=== PATIENT | female | born 1950 | race Caucasian/White ===

== ENCOUNTER 2017-11-25 15:07 | Emergency (ER) | payer MEDICARE, OTHER ==
[~2017-11-25] VITALS: Ht 167.6 cm; Wt 73.9 kg
[~2017-11-25 15:07] MED LIST changes: -ANTIVERT25 MG PO
[2017-11-25 16:11] LABS: ABSOLUTE BASOPHILS 0.1 thou/uL (0.0-0.2); ABSOLUTE EOSINOPHILS 0.3 thou/uL (0.0-0.7); ABSOLUTE LYMPHOCYTES 2.7 thou/uL (0.8-5.3); ABSOLUTE MONOCYTES 0.5 thou/uL (0.0-1.2); ABSOLUTE NEUTROPHILS 4.7 thou/uL (1.6-8.1); BASOPHILS 1.1 %; EOSINOPHILS 3.4 %; HEMATOCRIT 44.3 % (37.0-47.0); HEMOGLOBIN 14.9 gm/dL (12.0-15.0); LYMPHOCYTES 32.5 %; MCH 30.5 pg (26.0-34.0); MCHC 33.7 g/dL (28.0-37.0); MCV 90.4 fL (80.0-100.0); MONOCYTES 6.4 %; MPV 7.4 fl. (7.2-11.1); NUCLEATED RBCS 0 /100WBC; PLATELET COUNT* 249 thou/uL (150-400); POLYS 56.6 %; RDW-CV 14.1 % (10.5-14.5); WBC 8.2 thou/uL (4.0-11.0)
[2017-11-25 16:35] LABS: ANION GAP 6 mmol/L (7-16); BUN 19 mg/dL (7-18); CALCIUM 8.8 mg/dL (8.5-10.1); CHLORIDE 105 mmol/L (98-107); CO2 31 mmol/L (21-32); CREATININE 1.1 mg/dL (0.6-1.3); GLUCOSE 102 mg/dL (70-99); POTASSIUM 3.3 mmol/L (3.5-5.1); SODIUM 142 mmol/L (136-145)
[2017-11-25 16:37] LABS: URINE BILIRUBIN NEGATIVE (Negative); URINE BLOOD NEGATIVE (Negative); URINE CLARITY CLEAR; URINE COLOR YELLOW; URINE GLUCOSE-RANDOM 3+ (Negative); URINE KETONES NEGATIVE (Negative); URINE LEUKOCYTES-REFLEX NEGATIVE (Negative); URINE NITRITE-REFLEX NEGATIVE (Negative); URINE PROTEIN NEGATIVE (Negative); URINE UROBILINOGEN 0.2 E.U./dl (0.2-1.0)
[2017-11-25 16:42] LABS: ALBUMIN 3.4 g/dL (3.4-5.0); ALKALINE PHOSPHATASE 56 U/L (46-116); SGOT 32 U/L (15-37); SGPT 46 U/L (30-65); TOTAL BILIRUBIN 0.5 mg/dL (<0.1-1.0); TOTAL PROTEIN 6.6 g/dL (6.4-8.2); TROPONIN-I LEVEL <0.06 ng/mL (<0.06)
[2017-11-25] MEDS ORDERED: ANTIVERT25 MG PO (17:31)
[2017-11-25 17:55] VITALS: BP 107/68
--- NOTE | 2017-11-26 12:43 | EKG ---
[place] [address] ELECTROCARDIOGRAM REPORT Name: UMBERTO HIGHTOWER Room: [facility]#: [id number] Admission: 11/25/17 Attend Phys: Discharge: 11/25/17 Date of : 46 Report #: [id number] THIS REPORT FOR: //name// [facility] ED Test Date: 2017-11-25 Test Time: 15:27:25 Pat Name: UMBERTO HIGHTOWER Department: Room: Gender: F Coordinator Volunteer Services: : 1950 Requested By: Missy Salomon Order Number: [id number] MD: Gavino Romero Measurements Intervals [place] Rate: 80 P: 46 IN: 160 QRS: 15 QRSD: 98 T: 54 QT: 406 QTc: 469 Interpretive Statements Sinus rhythm Low voltage, precordial leads RSR' in V1 or V2, right VCD or RVH Baseline wander in lead(s) III Compared to ECG 04/15/2016 13:37:07 Low QRS voltage now present Electronically Signed On 11-26-2017 12:43:12 NYLON MACHINE OPERATOR by Gavino Romero [email or web address] <ELECTRONICALLY SIGNED> By: Gavino Romero MD, FAC 11/26/17 1243 1527 1527 Gavino Romero MD, [facility] /EPI
== END 2017-11-25 17:55 | disposition home or self-care (01) ==
LOC: M.ERS 15:07
PROVIDERS: Physician Assistant
DX: S09.8XXA Other specified injuries of head, initial encounter (principal); M25.512 Pain in left shoulder; E11.9 Type 2 diabetes mellitus without complications; E78.00 Pure hypercholesterolemia, unspecified; E03.9 Hypothyroidism, unspecified; M79.7 Fibromyalgia; Z88.5 Allergy status to narcotic agent; Z88.1 Allergy status to other antibiotic agents; Z79.4 Long term (current) use of insulin; W01.198A Fall on same level from slipping, tripping and stumbling with subsequent striking against other object, initial encounter; Y93.89 Activity, other specified; Y92.89 Other specified places as the place of occurrence of the external cause; Y99.8 Other external cause status

== ENCOUNTER → 2017-11-25 | Outpatient (CLI) | payer MEDICARE, OTHER ==
[~2017-11-25] MED LIST: ADULT LOW DOSE81 MG PO; AMRIX15 MG PO; ANTIVERT25 MG PO; ARMOUR THYROID15 M1 PO; ARMOUR THYROID60 M1 PO; ATIVAN0.5 MG PO; AUGMENTIN 875875 MG PO; AVALIDE 150-121 EACH PO; BASAGLAR K100 UNIT/1; BENTYL 10 MG CA10 M1 PO; BENTYL10 MG PO; BYETTA PEN 11 PENINJ SC; CRESTOR5 MG PO; CYCLOBENZAPRINE10 MG PO; CYMBALTA60 MG PO; DOLOPHINE HCL5 MG PO; FARXIGA5 MG PO; FENTANYL PATCH75 MCG TRANSDERM; GABAPENTIN 100100 MG PO; GELNIQUE30 GM TOP; HUMALOG100 UNIT/1 SUBQ; HYDROCODONE-APA1 TA1 PO; IBUPROFEN 800800 M1 PO; LANTUS SC; LIDODERM 5%1 PATC1 TOP; LIPITOR40 MG PO; MELATONIN 1 MG1 EACH PO; MELATONIN3 MG PO; MUCINEX TA600 MG/TA2 PO; MULTI VITAMIN1 EACH PO; Melatonin PO; NABUMETONE 750750 M1 PO; NEURONTIN 300300 M1 PO; NORCO 10-325 T1 EACH PO; NORCO 5-325 TA1 EACH PO; OXYBUTYNIN 5 MG5 M2 PO; OXYTROL3.9 MG/PAT TRANSDERM; PROBIOTIC1 EAC1 PO; PROVIGIL 100 M100 MG PO; REGLAN 5 MG TAB5 M1 PO; SYNTHROID50 MCG PO; TRANSDERM-SCO1 PATC1 TRANSDERM; TRILEPTAL150 MG PO; ULTRAM ER100 MG PO; UNICOMPLEX M TA1 TA1 PO; VENTOLIN HFA 1818 GM INH; VIACTIV CAPLET1 EACH PO; VITAMIN B 12 DISSOLVE; VITAMIN B125000 MCG PO; Vit B12 PO; ZANAFLEX4 MG PO; ZPAK PO; [UNRECOGNIZED DRUG - OTHER]
--- NOTE | 2017-11-25 15:04 | NUR ---
ARRIVED AMBULATORY WITH CANE. DAUGHTER AT SIDE. STATES FELL TODAY. REPORTS HITTING HER HEAD AND SHOULDER AND NOT FEELING QUITE RIIGHT AFTER. PORT A CATH ACCESSED. GOOD BRISK BLOOD RETURN NOTED AND FLUSHED WITH EASE. PORT LEFT ACCESSED. PT TO SEEK EVALUATION AT ED WHEN SHE LEAVES HERE FOR FALL. DAUGHTER WHO IS RN OR ED WILL DEACCESS WHEN DONE WITH ED.
== END ==
LOC: M.INFUS 14:30
DX: Z45.2 Encounter for adjustment and management of vascular access device (principal)

== ENCOUNTER → 2018-01-12 | Outpatient (CLI) | payer MEDICARE, OTHER ==
[~2018-01-12] MED LIST changes: +ANTIVERT25 MG PO
== END ==
LOC: M.INFUS 02:38
DX: D80.3 Selective deficiency of immunoglobulin G [IgG] subclasses (principal)

== ENCOUNTER → 2018-03-12 | Outpatient (CLI) | payer MEDICARE, OTHER ==
--- NOTE | 2018-03-12 12:10 | NUR ---
ARRIVED AMBULTORY FOR MONTHLY PORT A CATH ACCESS AND FLUSH. PORT ACCESSED WITH OUT DIFFICULTY. GOOD BRISK BLOOD RETURN NOTED AND FLUSHED WITH EASE. PORT FLUHSED AND DEACCESSED. DENIES QUESTIONS OR NEEDS AT DISCHARGE.
== END ==
LOC: M.INFUS 06:04
DX: Z45.2 Encounter for adjustment and management of vascular access device (principal)

== ENCOUNTER → 2018-05-28 | Outpatient (CLI) | payer MEDICARE, OTHER | LOC: M.ULTRA 09:33 | DX: E04.1 Nontoxic single thyroid nodule (principal); E11.9 Type 2 diabetes mellitus without complications; E03.9 Hypothyroidism, unspecified; E78.00 Pure hypercholesterolemia, unspecified ==

== ENCOUNTER → 2018-06-05 | Outpatient (CLI) | payer MEDICARE, OTHER ==
--- NOTE | 2018-06-05 10:58 | NUR ---
ARRIVED AMBULATROY. MADE SELF COMFORTABLE. RIGHT CHEST PORT A CATH INTACT. WITH NO SIGN OF INFECTION, PORT A CATH ACCESSED WITH OUT DIFFICULTY. GOOD BRISK BLOOD RETURN NOTED AND FLUSHED WITH EASE. PORT FLUSHED AND THEN DEACCESSED. TOLERATED WELL. BAIDAID APPLIED. DENIES QUESTIONS OR NEEDS AT DISCHARGE.
== END ==
LOC: M.RAD 06-02 11:00 → M.INFUS 05:58 → M.RAD 11:00
DX: R13.19 Other dysphagia (principal)

== ENCOUNTER → 2018-07-07 | Outpatient (CLI) | payer MEDICARE, OTHER ==
[2018-07-07 10:37] LABS: ALBUMIN 3.3 g/dL (3.4-5.0); CALCIUM 8.2 mg/dL (8.5-10.1); TOTAL BILIRUBIN 0.2 mg/dL (<0.1-1.0); TOTAL PROTEIN 6.7 g/dL (6.4-8.2)
== END ==
LOC: M.LAB 09:26
PROVIDERS: Psychiatry & Neurology Neuromuscular Medicine
DX: Z12.31 Encounter for screening mammogram for malignant neoplasm of breast (principal); R26.9 Unspecified abnormalities of gait and mobility; E11.9 Type 2 diabetes mellitus without complications; E03.9 Hypothyroidism, unspecified; E78.00 Pure hypercholesterolemia, unspecified; Z86.19 Personal history of other infectious and parasitic diseases; Z87.39 Personal history of other diseases of the musculoskeletal system and connective tissue

== ENCOUNTER → 2018-07-22 | Outpatient (CLI) | payer MEDICARE, OTHER ==
[2018-07-22 09:30] VITALS: BP 118/66
--- NOTE | 2018-07-22 12:10 | NUR ---
PATIENT IMPLANTABLE PORT FLUSHED AND PACKED WITH HEPARIN. IMPLANTABLE PORT PATENT, SITE DRY AND INTACT WITH NO REDNESS OR SWELLING.
== END ==
LOC: M.INFUS 03:52
DX: Z45.2 Encounter for adjustment and management of vascular access device (principal)

== ENCOUNTER → 2018-08-03 | Outpatient (CLI) | payer MEDICARE, OTHER | LOC: M.CT 07-09 09:30 | DX: G31.9 Degenerative disease of nervous system, unspecified (principal); R26.9 Unspecified abnormalities of gait and mobility; Z86.19 Personal history of other infectious and parasitic diseases; Z87.39 Personal history of other diseases of the musculoskeletal system and connective tissue ==

== ENCOUNTER → 2018-08-20 | Outpatient (CLI) | payer MEDICARE, OTHER | LOC: M.RAD 12:00 | DX: N20.0 Calculus of kidney (principal) ==

== ENCOUNTER → 2018-09-18 | Outpatient (CLI) | payer MEDICARE, OTHER ==
--- NOTE | 2018-09-18 10:20 | NUR ---
ARRIVED AMBULATORY. MADE SELF COMFORTABLE IN RECLINER. PT'S RIGHT PORT A CATH ACCESSED BY THIS NURSE. RIGHT PAC ASPIRATED W/GOOD BLOOD RETURN. RIGHT PAC FLUSHED W/20 ML NORMAL SALINE AND 5 ML HEPARIN FLUSH. PT LEFT AMBULATORY FOR DISCHARGE HOME TO SELF CARE VIA FAMILY CARE.
[2018-09-18 10:23] VITALS: BP 99/65
== END ==
LOC: M.INFUS 04:32
DX: Z45.2 Encounter for adjustment and management of vascular access device (principal)

== ENCOUNTER 2018-10-10 11:33 | Inpatient (IN) | payer MEDICARE, OTHER ==
[~2018-10-10] VITALS: Ht 170.2 cm; Wt 77.6 kg
[2018-10-10 11:37] VITALS: BP 115/72
[2018-10-10 12:17] LABS: WBC 8.1 thou/uL (4.0-11.0)
[2018-10-10 12:18] LABS: HEMATOCRIT 47.9 % (37.0-47.0); MCH 29.5 pg (26.0-34.0); MCHC 33.4 g/dL (28.0-37.0); MCV 88.6 fL (80.0-100.0); MPV 7.2 fl. (7.2-11.1); NUCLEATED RBCS 0 /100WBC; PLATELET COUNT* 208 thou/uL (150-400); RDW-CV 14.4 % (10.5-14.5)
[2018-10-10 12:33] LABS: ANION GAP 10 mmol/L (7-16); BUN 23 mg/dL (7-18); CALCIUM 8.4 mg/dL (8.5-10.1); CHLORIDE 103 mmol/L (98-107); CO2 28 mmol/L (21-32); GLUCOSE 166 mg/dL (70-99); POTASSIUM 3.5 mmol/L (3.5-5.1); SODIUM 141 mmol/L (136-145)
[2018-10-10 12:36] LABS: APTT 34.3 Seconds (25.0-31.3); PROTIME 9.9 Seconds (9.20-11.50)
[2018-10-10 12:44] LABS: ALBUMIN 3.3 g/dL (3.4-5.0); ALKALINE PHOSPHATASE 57 U/L (46-116); NT-PRO BRAIN NAT PEPTIDE 58 pg/mL (<300); SGOT 19 U/L (15-37); SGPT 33 U/L (30-65); TOTAL BILIRUBIN 0.4 mg/dL (<0.1-1.0); TOTAL PROTEIN 6.8 g/dL (6.4-8.2); TROPONIN-I LEVEL <0.06 ng/mL (<0.06)
[2018-10-10 12:56] LABS: ABSOLUTE LYMPHOCYTES 0.2 thou/uL (0.8-5.3); ABSOLUTE MONOCYTES 0.1 thou/uL (0.0-1.2); ABSOLUTE NEUTROPHILS 7.8 thou/uL (1.6-8.1); PLATELET ESTIMATE ADEQUATE
[2018-10-10 15:07] VITALS: BP 121/71
[2018-10-10 15:40] VITALS: BP 126/71
[2018-10-10 20:00] VITALS: BP 103/65
[2018-10-11] VITALS: BP 97/53
[2018-10-11 04:00] VITALS: BP 106/61
[2018-10-11 08:30] VITALS: BP 101/57
[2018-10-11 11:58] VITALS: BP 100/57
--- NOTE | 2018-10-11 13:42 | EKG ---
[place] [address] ELECTROCARDIOGRAM REPORT Name: UMBERTO HIGHTOWER Room: [address] ADM IN .R.#: [id number] Admission: 10/10/18 Attend Phys: Lamont Kumar MD Discharge: Date of : 46 Report #: [id number] THIS REPORT FOR: //name// [facility] ED Test Date: 2018-10-10 Test Time: 11:40:21 Pat Name: UMBERTO HIGHTOWER Department: Room: [facility] Gender: F Bench Assembler Operator: [facility] : 1950 Requested By: Alvarado Nj Order Number: [id number] MD: Gavino Romero Measurements Intervals [place] Rate: 113 P: 42 ID: [id number] QRS: -38 QRSD: 88 T: 53 QT: 334 QTc: 458 Interpretive Statements Sinus tachycardia Left axis deviation Compared to ECG 11/25/2017 15:27:25 Left-axis deviation now present Sinus rhythm no longer present Electronically Signed On 10-11-2018 13:41:48 BRANCH DIRECTOR by Gavino Romero [email or web address] <ELECTRONICALLY SIGNED> By: Gavino Romero MD, FAC 10/11/18 1341 1140 1140 Gavino Romero MD, [facility] /EPI
[2018-10-11 16:42] VITALS: BP 134/72
[2018-10-11 20:00] VITALS: BP 114/43
[2018-10-12] VITALS: BP 105/56
[2018-10-12 04:00] VITALS: BP 119/76
[2018-10-12 08:32] VITALS: BP 122/71
[2018-10-12 12:32] VITALS: BP 122/71
[2018-10-12] MEDS ORDERED: ZOFRAN ODT4 MG DISSOLVE (12:36)
== END 2018-10-12 14:27 | disposition home or self-care (01) | DRG 392 ==
LOC: M.ERS 11:33 → M.TBA-ER 13:43 → M.2W 13:43
PROVIDERS: Family Medicine
DX: A08.4 Viral intestinal infection, unspecified (principal); E44.1 Mild protein-calorie malnutrition; E87.2 Acidosis; E11.9 Type 2 diabetes mellitus without complications; I10 Essential (primary) hypertension; E03.9 Hypothyroidism, unspecified; R79.0 Abnormal level of blood mineral; E78.00 Pure hypercholesterolemia, unspecified; M79.7 Fibromyalgia; Z90.49 Acquired absence of other specified parts of digestive tract; Z90.710 Acquired absence of both cervix and uterus; Z88.5 Allergy status to narcotic agent; Z88.1 Allergy status to other antibiotic agents; Z88.8 Allergy status to other drugs, medicaments and biological substances; Z79.82 Long term (current) use of aspirin; Z79.899 Other long term (current) drug therapy; Z68.26 Body mass index [BMI] 26.0-26.9, adult

== ENCOUNTER → 2018-10-26 | Outpatient (CLI) | payer MEDICARE, OTHER ==
[~2018-10-26] MED LIST changes: +ZOFRAN ODT4 MG DISSOLVE
== END ==
LOC: M.RAD 13:49
DX: Z13.820 Encounter for screening for osteoporosis (principal); M85.89 Other specified disorders of bone density and structure, multiple sites; Z78.0 Asymptomatic menopausal state

== ENCOUNTER → 2018-11-18 | Outpatient (CLI) | payer MEDICARE, OTHER ==
[2018-11-18 10:30] VITALS: BP 133/87
--- NOTE | 2018-11-18 11:05 | NUR ---
ARRIVED AMBULATORY. PORT A CATH ACCESSED WITH OUT DIFFICULTY. GOOD BRISK BLOOD RETURN NOTED AND FLUSHED WITH EASY. PORT FLUSHED AND THEN DEACCESSED. TOELRATED WELL. DENIES NEEDS AT DISCHARGE.
== END ==
LOC: M.INFUS 10:00
DX: Z45.2 Encounter for adjustment and management of vascular access device (principal)

== ENCOUNTER → 2019-01-05 | Outpatient (CLI) | payer MEDICARE, OTHER ==
[2019-01-05 10:45] VITALS: BP 126/68
== END ==
LOC: M.INFUS 09:10
DX: Z45.2 Encounter for adjustment and management of vascular access device (principal)

== ENCOUNTER → 2019-01-27 | Outpatient (CLI) | payer MEDICARE, OTHER | LOC: M.RAD 14:49 | DX: M16.0 Bilateral primary osteoarthritis of hip (principal) ==

== ENCOUNTER → 2019-02-03 | Outpatient (CLI) | payer MEDICARE, OTHER | LOC: M.CT 15:00 | DX: S73.192A Other sprain of left hip, initial encounter (principal); M16.12 Unilateral primary osteoarthritis, left hip; M11.252 Other chondrocalcinosis, left hip; X58.XXXA Exposure to other specified factors, initial encounter; Y93.89 Activity, other specified; Y92.89 Other specified places as the place of occurrence of the external cause; Y99.8 Other external cause status ==

== ENCOUNTER 2019-02-17 20:48 | Emergency (ER) | payer MEDICARE, OTHER ==
[~2019-02-17] VITALS: Ht 167.6 cm; Wt 76.2 kg
[2019-02-17] MEDS ORDERED: AVALIDE 150-121 EACH PO (21:00)
[2019-02-17] MEDS ORDERED: BASAGLAR K100 UNIT/1 SUBQ (21:01)
[2019-02-17 23:26] LABS: URINE BILIRUBIN NEGATIVE (Negative); URINE BLOOD 3+ (Negative); URINE CLARITY CLEAR; URINE COLOR YELLOW; URINE GLUCOSE-RANDOM NEGATIVE (Negative); URINE KETONES NEGATIVE (Negative); URINE LEUKOCYTES NEGATIVE (Negative); URINE NITRITE NEGATIVE (Negative); URINE PROTEIN NEGATIVE (Negative); URINE SPECIFIC GRAVITY <= 1.005 (1.005-1.030); URINE UROBILINOGEN 0.2 E.U./dl (0.2-1.0)
[2019-02-17 23:32] LABS: BACTERIA None Seen /HPF (None Seen); CASTS None Seen /LPF (None Seen); CRYSTALS None Seen /LPF (None Seen); SQUAMOUS NONE SEEN /LPF (0-3); URINE RBC None Seen /HPF (0-2); URINE WBC None Seen /HPF (0-5)
[2019-02-18 01:37] LABS: ABSOLUTE EOSINOPHILS 0.3 thou/uL (0.0-0.7); ABSOLUTE LYMPHOCYTES 1.9 thou/uL (0.8-5.3); ABSOLUTE MONOCYTES 0.5 thou/uL (0.0-1.2); ABSOLUTE NEUTROPHILS 4.4 thou/uL (1.6-8.1); BASOPHILS 0.7 %; EOSINOPHILS 3.6 %; HEMOGLOBIN 14.1 gm/dL (12.0-15.0); LYMPHOCYTES 26.5 %; MCH 29.4 pg (26.0-34.0); MCHC 33.5 g/dL (28.0-37.0); MCV 87.8 fL (80.0-100.0); MONOCYTES 7.4 %; MPV 7.5 fl. (7.2-11.1); NUCLEATED RBCS 0 /100WBC; PLATELET COUNT* 242 thou/uL (150-400); POLYS 61.8 %; RBC 4.78 mil/uL (4.20-5.00); RDW-CV 14.1 % (10.5-14.5); WBC 7.2 thou/uL (4.0-11.0)
[2019-02-18 01:44] LABS: POTASSIUM 3.7 mmol/L (3.5-5.1)
[2019-02-18 05:30] VITALS: BP 166/79
== END 2019-02-18 05:30 | disposition short-term general hospital (02) ==
LOC: M.ERS 20:48
PROVIDERS: Emergency Medicine
DX: R31.0 Gross hematuria (principal); E11.9 Type 2 diabetes mellitus without complications; E78.00 Pure hypercholesterolemia, unspecified; E03.9 Hypothyroidism, unspecified; M79.7 Fibromyalgia; Z88.1 Allergy status to other antibiotic agents; Z88.5 Allergy status to narcotic agent; Z88.8 Allergy status to other drugs, medicaments and biological substances

== ENCOUNTER → 2019-04-06 | Outpatient (CLI) | payer MEDICARE, OTHER ==
[~2019-04-06] MED LIST changes: +BASAGLAR K100 UNIT/1 SUBQ
--- NOTE | 2019-04-06 09:47 | NUR ---
ARRIVED AMBULATROY AMDE SELF COMFORTABLE. PORT A CATH ACCESSED WITH OUT DIFFICULTY. GOOD BRISK BLOOD RETURN NOTED AND FLUSHED WITH EASE. PORT FLUSHED AND DEACCESSED. TOELRATED WELL. DENIES QUESTIONS OR NEEDS AT DISCHARGE.
== END ==
LOC: M.INFUS 07:53
DX: Z45.2 Encounter for adjustment and management of vascular access device (principal); D80.3 Selective deficiency of immunoglobulin G [IgG] subclasses

== ENCOUNTER 2019-05-13 18:30 | Emergency (ER) | payer MEDICARE, OTHER ==
[~2019-05-13] VITALS: Ht 167.6 cm; Wt 76.2 kg
[2019-05-13] MEDS ORDERED: MYRBETRIQ25 MG PO (18:44)
[2019-05-13] MEDS ORDERED: FLEXERIL PO (20:26)
[2019-05-13] MEDS ORDERED: TRAMADOL 50 MG50 MG PO (20:26)
[2019-05-13 20:52] VITALS: BP 115/63
== END 2019-05-13 20:54 | disposition home or self-care (01) ==
LOC: M.ERS 18:30
DX: S16.1XXA Strain of muscle, fascia and tendon at neck level, initial encounter (principal); S06.0X0A Concussion without loss of consciousness, initial encounter; S20.212A Contusion of left front wall of thorax, initial encounter; E11.9 Type 2 diabetes mellitus without complications; E78.00 Pure hypercholesterolemia, unspecified; E03.9 Hypothyroidism, unspecified; M79.7 Fibromyalgia; Z90.710 Acquired absence of both cervix and uterus; Z79.84 Long term (current) use of oral hypoglycemic drugs; Z79.4 Long term (current) use of insulin; Z79.899 Other long term (current) drug therapy; Z88.6 Allergy status to analgesic agent; Z88.1 Allergy status to other antibiotic agents; Z88.8 Allergy status to other drugs, medicaments and biological substances; W06.XXXA Fall from bed, initial encounter; Y93.89 Activity, other specified; Y92.89 Other specified places as the place of occurrence of the external cause; Y99.8 Other external cause status

== ENCOUNTER → 2019-06-17 | Outpatient (CLI) | payer MEDICARE, OTHER ==
[~2019-06-17] MED LIST changes: +FLEXERIL PO; +MYRBETRIQ25 MG PO; +TRAMADOL 50 MG50 MG PO
--- NOTE | 2019-06-17 13:30 | NUR ---
ARRIVED AMBULATORY. MADE SELF COMFORTABLE IN RECLINER. PORT AATH ACCESSED WITH OUT DIFFICULTY. GOOD BRISK BLOOD RETURN NOTED AND FLUSHED WITH EASE. PORT FLUSHED AND DEACCESSED. TOLERATED WELL.
== END ==
LOC: M.INFUS 05:24
DX: Z45.2 Encounter for adjustment and management of vascular access device (principal)

== ENCOUNTER → 2019-07-09 | Outpatient (CLI) | payer MEDICARE, OTHER | LOC: M.RAD 12:39 | DX: M18.9 Osteoarthritis of first carpometacarpal joint, unspecified (principal) ==

== ENCOUNTER → 2019-07-27 | Outpatient (CLI) | payer MEDICARE, OTHER | LOC: M.RAD 11:40 | DX: Z12.31 Encounter for screening mammogram for malignant neoplasm of breast (principal) ==

== ENCOUNTER → 2019-08-27 | Outpatient (CLI) | payer MEDICARE, OTHER ==
[~2019-08-27] MED LIST changes: +AMOXICILLIN-CL1 EACH PO; +ERGOCAL2500 UNIT PO; +LEVSIN-SL0.125 MG SUBLING; +MACRODANTIN100 MG PO; +MUCINEX600 MG PO; +MYRBETRIQ50 MG PO; +UROCIT-K10 ME1 PO
== END ==
LOC: M.INFUS 04:52
DX: Z45.2 Encounter for adjustment and management of vascular access device (principal)

== ENCOUNTER → 2019-09-27 | Outpatient (CLI) | payer MEDICARE, OTHER | LOC: M.CT 15:10 | DX: N20.0 Calculus of kidney (principal) ==

== ENCOUNTER 2019-09-30 13:44 | Inpatient (IN) | payer MEDICARE, OTHER ==
[~2019-09-30] VITALS: Ht 167.6 cm; Wt 78.0 kg
--- NOTE | ~2019-09-30 | OP ---
[address] [address] OPERATIVE REPORT Name: UMBERTO HIGHTOWER Room: [address] IN M.R.#: [id number] Admission: 09/30/19 Attend Phys: Huma Calderon Discharge: Date of : 46 Report #: [id number] THIS REPORT FOR: //name// CC: Huma Pinto DATE OF SERVICE: 10/01/2019 INDICATION FOR PROCEDURE: The patient is a 69-year-old female with a history of recurrent UTIs and a bladder mass that required biopsy in 01/2019 by another urologist. She was admitted to [facility] with right-sided flank pain and diagnosed with a 7 mm right UPJ calculus. After discussing treatment options in detail, she elected to undergo cystoscopy with possible bladder biopsies for any suspicious lesions, right retrograde pyelogram and hopeful right ureteroscopic stone extraction. PREOPERATIVE DIAGNOSES: 1. History of bladder mass. 2. Right renal calculus. PROCEDURE PERFORMED: Cystoscopy, right retrograde pyelogram, right ureteroscopy and stent. SURGEON: Gavino Gaming MD ANESTHESIA: General. COMPLICATIONS: None. ESTIMATED BLOOD LOSS: None. PROCEDURE IN DETAIL: The patient was consented for the above procedures, given broad spectrum IV antibiotics preoperatively. She was given general anesthetic, placed in dorsal lithotomy position. She was prepped and draped in usual sterile fashion over the genitalia. Cystoscopy was performed with a 22-Chinese sheath and 70 and 30 degree lens, which revealed no evidence of any papillary bladder lesions or erythematous patches. On her left lateral wall, I could see scarring from her previous bladder biopsy, but nothing looked suspicious for any recurrent lesions. Ureteral orifices were in the proper position. No stones were seen on fluoroscopy. A right retrograde pyelogram was performed, which revealed a normal caliber right ureter. A very small renal pelvis with a filling defect in the renal pelvis and sharp calices were noted. Based on that, a 0.035 floppy-tipped guidewire was passed up the right ureter under fluoroscopic guidance without difficulty. Next, I attempted to pass an 11/13-Chinese 28 cm ureteral access sheath over the wire under fluoroscopic guidance, but could only get the access sheath approximately 2-3 [place] [address] OPERATIVE REPORT Name: CAMPBELLUMBERTO DEONTE Room: [address] IN ..#: [id number] Admission: 09/30/19 Attend Phys: Huma Calderon Discharge: Date of : 46 Report #: [id number] distal ureter. With the access sheath in place, I removed the trocar and leaving the guidewire in place and I passed the flexible ureteroscope over the guidewire to try to pass the ureteroscope up the ureter and into the renal pelvis. I was able to get the ureteroscope up the ureter, but it would not traverse past the ureteropelvic junction based on the small opening. Based on that, I elected to halt the procedure, I elected to remove the ureteroscope as well as the access sheath, I placed a 4.8 x 26 double-J stent over the wire with good curl noted in the renal pelvis and in the bladder after removing the wire. This was confirmed with fluoroscopy and cystoscopy. The bladder was drained, scope was removed and lidocaine gel was placed per urethra for local anesthesia. We will have to leave the stent in place for approximately 7-10 days and then can come back for repeat ureteroscopy after the ureteropelvic junction has passively dilated. By: [id number] Gaming MD /[place]
[~2019-09-30 13:44] MED LIST changes: -AMOXICILLIN-CL1 EACH PO; -ERGOCAL2500 UNIT PO; -LEVSIN-SL0.125 MG SUBLING; -MACRODANTIN100 MG PO; -MUCINEX600 MG PO; -MYRBETRIQ50 MG PO; -UROCIT-K10 ME1 PO
[2019-09-30 14:12] VITALS: BP 96/67
[2019-09-30] MEDS ORDERED: MYRBETRIQ50 MG PO (14:21)
[2019-09-30] MEDS ORDERED: MACRODANTIN100 MG PO (14:22)
[2019-09-30] MEDS ORDERED: AMOXICILLIN-CL1 EACH PO (14:26)
[2019-09-30] MEDS ORDERED: ERGOCAL2500 UNIT PO (14:27)
[2019-09-30 15:06] LABS: URINE BLOOD 2+ (Negative); URINE CLARITY CLEAR; URINE COLOR YELLOW; URINE GLUCOSE-RANDOM NEGATIVE (Negative); URINE KETONES TRACE (Negative); URINE LEUKOCYTES-REFLEX NEGATIVE (Negative); URINE NITRITE-REFLEX NEGATIVE (Negative); URINE PROTEIN 1+ (Negative); URINE SPECIFIC GRAVITY 1.025 (1.005-1.030); URINE UROBILINOGEN 0.2 E.U./dl (0.2-1.0)
[2019-09-30 15:09] LABS: ICTOTEST (BILI CONFIRMATORY) Negative (Negative); URINE BILIRUBIN 1+ (Negative)
[2019-09-30 15:11] LABS: SQUAMOUS 4-10 Moderate /LPF (0-3); URINE WBC-REFLEX None Seen /HPF (0-5)
[2019-09-30 15:12] LABS: BACTERIA-REFLEX >30 Many /HPF (None Seen); HYALINE CASTS >10 Many /LPF (None Seen); MUCUS >6 Heavy strn/LPF (None Seen); URINE RBC >20 Many /HPF (0-2)
[2019-09-30 15:13] LABS: CRYSTALS None Seen /LPF (None Seen); FINE GRANULAR CASTS 0-3 Few /LPF (None Seen)
[2019-09-30 15:41] LABS: ABSOLUTE BASOPHILS 0.1 thou/uL (0.0-0.2); ABSOLUTE EOSINOPHILS 0.1 thou/uL (0.0-0.7); ABSOLUTE LYMPHOCYTES 2.1 thou/uL (0.8-5.3); ABSOLUTE MONOCYTES 0.7 thou/uL (0.0-1.2); ABSOLUTE NEUTROPHILS 6.2 thou/uL (1.6-8.1); EOSINOPHILS 1.6 %; HEMATOCRIT 41.6 % (37.0-47.0); LYMPHOCYTES 22.5 %; MCH 29.6 pg (26.0-34.0); MCHC 33.6 g/dL (28.0-37.0); MCV 87.9 fL (80.0-100.0); MONOCYTES 7.6 %; MPV 7.9 fl. (7.2-11.1); NUCLEATED RBCS 0 /100WBC; PLATELET COUNT* 251 thou/uL (150-400); POLYS 67.3 %; RBC 4.73 mil/uL (4.20-5.00); RDW-CV 14.4 % (10.5-14.5); WBC 9.3 thou/uL (4.0-11.0)
[2019-09-30 16:07] LABS: CALCIUM 8.8 mg/dL (8.5-10.1); CREATININE 1.1 mg/dL (0.6-1.3)
[2019-09-30 16:12] LABS: ALBUMIN 3.1 g/dL (3.4-5.0); TOTAL BILIRUBIN 0.4 mg/dL (<0.1-1.0); TOTAL PROTEIN 6.3 g/dL (6.4-8.2)
[2019-09-30 19:20] VITALS: BP 112/71
[2019-09-30 19:25] VITALS: BP 108/64
[2019-10-01 00:05] VITALS: BP 113/62
--- NOTE | 2019-10-01 01:36 | NUR ---
PT ADMITTED TO ROOM 108 AT 1920 FOR RIGHT FLANK PAIN ASSOCIATED WITH KIDNEY STONE. PT ORIENTED TO ROOM, CALL LIGHT, BED CONTROLS. PT INSTRUCTED TO BE NPO AFTER MIDNIGHT FOR POSSIBLE CYSTOSCOPY.
[2019-10-01 08:39] VITALS: BP 117/68
[2019-10-01 09:09] LABS: HEMATOCRIT 38.2 % (37.0-47.0); HEMOGLOBIN 12.9 gm/dL (12.0-15.0); MCH 29.3 pg (26.0-34.0); MCHC 33.7 g/dL (28.0-37.0); MCV 86.9 fL (80.0-100.0); MPV 7.2 fl. (7.2-11.1); RBC 4.4 mil/uL (4.20-5.00); RDW-CV 14.1 % (10.5-14.5); WBC 4.9 thou/uL (4.0-11.0)
[2019-10-01 09:23] LABS: CALCIUM 8.4 mg/dL (8.5-10.1)
[2019-10-01 09:53] VITALS: BP 117/68
--- NOTE | 2019-10-01 10:23 | EKG ---
[place] [address] ELECTROCARDIOGRAM REPORT Name: UMBERTO HIGHTOWER Room: [address] ADM IN M.R.#: [id number] Admission: 09/30/19 Attend Phys: Huma Calderon Discharge: Date of : 46 Report #: [id number] THIS REPORT FOR: //name// [facility] ED Test Date: 2019-09-30 Test Time: 14:38:54 Pat Name: UMBERTO HIGHTOWER Department: Room: [facility] Gender: F Security Officer: : 1950 Requested By: Roseann Sutherland Order Number: [id number] MD: Gavino Romero Measurements Intervals [place] Rate: 103 P: 59 NC: 162 QRS: -25 QRSD: 104 T: 33 QT: 387 QTc: 507 Interpretive Statements Sinus tachycardia Borderline left axis deviation Low voltage, precordial leads Prolonged QT interval Compared to ECG 10/10/2018 11:40:21 Low QRS voltage now present Prolonged QT interval now present Electronically Signed On 10-01-2019 10:23:23 SURVEILLANCE SYSTEMS ANALYST by Gavino Romero [email or web address] <ELECTRONICALLY SIGNED> By: Gavino Romero MD, FACC 10/01/19 1023 1438 1438 Gavino Romero MD, [facility] /EPI
--- NOTE | 2019-10-01 14:28 | NUR ---
PT RETURNED TO ROOM AT 1315 AND IS ALERT AND ORIENTATED.IV FLUIDS INFUSING PER PUMP TO RT. CHEST PORTACATH.PT HAS BEEN UP TO BR WITH STEADY GAIT AND VOIDS BLOOD TINGED URINE. PRN FOR PAIN GIVEN. PT TOLERATED PO FLUIDS WELL AND PLANS TO EAT SANDWICH SOON. PLANS TO KEEP OVER NIGHT AND DO ECHO TOMORROW. AT BEDSIDE.
[2019-10-01 14:33] VITALS: BP 127/82
--- NOTE | 2019-10-01 17:18 | 2DMMODE ---
[place] [address] 2 D/M-MODE ECHOCARDIOGRAM Name: UMBERTO HIGHTOWER Room: [address] IN [facility]#: [id number] Admission: 09/30/19 Attend Phys: Huma field Sa Discharge: Date of : 46 Date of Service: 10/01/19 1718 Report #: [id number] THIS REPORT FOR: //name// APPROVED REPORT Study performed: 10/01/2019 15:46:12 EXAM: Comprehensive 2D, Doppler, and color-flow Echocardiogram Patient Location: In-Patient Room #: [facility] Status: routine BSA: 1.88 HR: 66 bpm BP: 117/68 mmHg Rhythm: NSR Other Information Study Quality: Fair Indications ?CARDIOMYOPATHY 2D Dimensions IVSd: 10.35 (7-11mm) LVOT Diam: 19.28 (18-24mm) LVDd: 40.05 mm PWd: 10.96 (7-11mm) Ascending Ao: 31.76 (22-36mm) LVDs: 21.98 (25-40mm) Aortic Root: 28.44 mm Volumes Left Atrial Volume (Systole) LA ESV Index: 10.20 mL/m2 Aortic Valve AoV Peak Tk.: 1.42 m/s AO Peak Gr.: 8.04 mmHg LVOT Max P.42 mmHg AO Mean Gr.: 4.00 mmHg LVOT Mean P.49 mmHg LVOT Max V: 1.16 m/s AO V2 VTI: 27.68 cm LVOT Mean V: 0.72 m/s MARY (VTI): 2.52 cm2 LVOT V1 VTI: 23.85 cm Mitral Valve E/A Ratio: 0.74 MV Decel. Time: 271.42 ms MV E Max Tk.: 0.87 m/[place] [address] 2 D/M-MODE ECHOCARDIOGRAM Name: UMBERTO HIGHTOWERAshley Room: [address] IN .R.#: [id number] Admission: 09/30/19 Attend Phys: Huma field Sa Discharge: Date of : 46 Date of Service: 10/01/19 1718 Report #: [id number] MV PHT: 78.71 ms MVA (PHT): 2.79 cm2 TDI E/Lateral E': 9.67 E/Medial E': 8.70 Medial E' Tk.: 0.10 m/s Lateral E' Tk.: 0.09 m/s Pulmonary Valve PV Peak Tk.: 1.02 m/s PV Peak Gr.: 4.14 mmHg Left Ventricle The left ventricle is normal size. There is normal LV segmental wall motion. There is normal left ventricular wall thickness. Left ventricular systolic function is normal. The left ventricular ejection fraction is within the normal range. LVEF is 65-70%. Grade I - abnormal relaxation pattern. Right Ventricle The right ventricle is normal size. The right ventricular systolic function is normal. Atria The left atrium size is normal. The right atrium size is normal. Aortic Valve The aortic valve is normal in structure. No aortic regurgitation is present. There is no aortic valvular stenosis. Mitral Valve The mitral valve is normal in structure. Trace mitral regurgitation. No evidence of mitral valve stenosis. Tricuspid Valve The tricuspid valve is normal in structure. Unable to assess PA pressure. Trace tricuspid regurgitation. Pulmonic Valve The pulmonary valve is normal in structure. There is no pulmonic valvular regurgitation. Great Vessels The aortic root is normal in size. IVC is normal in size and collapses >50% [place] [address] 2 D/M-MODE ECHOCARDIOGRAM Name: UMBERTO HIGHTOWER Room: [address] IN [facility]#: [id number] Admission: 09/30/19 Attend Phys: Huma field Sa Discharge: Date of : 46 Date of Service: 10/01/19 1718 Report #: [id number] Pericardium There is no pericardial effusion. <Conclusion> Left ventricular systolic function is normal. The left ventricular ejection fraction is within the normal range. <ELECTRONICALLY SIGNED> By: Gavino Romero MD, [facility] 10/01/191717 17 17 Gavino Romero MD, [facility] /INF
--- NOTE | 2019-10-01 18:21 | NUR ---
PT RESTS IN BED WITH IV FLUIDS INFUSING PER PUMP. PT IS ALERT AND ORIENTATED. LEVSIN HAS RELEIVED BLADDER SPASMS.PT VOIDING WELL LIGHT BLOOD TINGED. AT BEDSIDE.
[2019-10-01 19:46] VITALS: BP 130/79
[2019-10-02] VITALS (8 sets, daily range): BP systolic 113–127; BP diastolic 65–83
--- NOTE | 2019-10-02 05:29 | NUR ---
PATIENT AMBULATING WELL, REQUESTED PAIN MEDS BEFORE BED. SHE WAS UP MOST OF NIGHT BUT DID NOT REPORT ANY WORSENING OF CONDITION. RECEIVED MEDS SCHEDULED. WILL CONTINUE TO FOLLOW PLAN OF CARE.
--- NOTE | 2019-10-02 05:35 | NUR ---
RECEIVED ALL ABX SCHEDULED AND MORPHINE Q4 FOR PAIN. PATIENT WAS ABLE TO SLEEP THROUGH THE NIGHT, NO REPORTS OF WORSENING OF CONDITION. DRESSING C/D/I. WILL CONTINUE TO FOLLOW PLAN OF CARE.
[2019-10-02] MEDS ORDERED: UROCIT-K10 ME1 PO (08:01)
[2019-10-02] MEDS ORDERED: LEVSIN-SL0.125 MG SUBLING (08:01)
--- NOTE | 2019-10-02 16:16 | NUR ---
PATIENT DISCHARGED FROM UNIT AT 1540. ALERT AND ORIENTED X 4. VITAL SIGNS STABLE ON ROOM AIR. UP INDEPENDENTLY IN ROOM AND AMBULATING IN HALLWAY. CHEST PORT DEACCESSED. PAIN BEING MANAGED WITH PO MEDICATION. DENIES NAUSEA AT THIS TIME. MEDICATION INFORMATION AND DISCHARGE INSTRUCTIONS GIVEN TO PATIENT. LEFT WITH ALL BELONGINGS. PATIENT LEFT WITH DAUGHTER VIA CAR.
[2019-10-04] MEDS ORDERED: MUCINEX600 MG PO (16:19)
== END 2019-10-02 15:40 | disposition home or self-care (01) | DRG 660 ==
LOC: M.ERS 13:44 → M.ORTHSURG 17:19 → M.TBA-ER 17:19 → M.ICU 22:13 → M.ORTHSURG 22:22
PROVIDERS: Nurse Practitioner Adult Health; Nurse Practitioner Family; ADMIT Family Medicine
DX: N13.6 Pyonephrosis (principal); E44.0 Moderate protein-calorie malnutrition; N30.01 Acute cystitis with hematuria; K57.90 Diverticulosis of intestine, part unspecified, without perforation or abscess without bleeding; E11.9 Type 2 diabetes mellitus without complications; E78.00 Pure hypercholesterolemia, unspecified; E03.9 Hypothyroidism, unspecified; M19.90 Unspecified osteoarthritis, unspecified site; E78.5 Hyperlipidemia, unspecified; N32.81 Overactive bladder; G89.29 Other chronic pain; Z90.710 Acquired absence of both cervix and uterus; Z90.49 Acquired absence of other specified parts of digestive tract; Z88.6 Allergy status to analgesic agent; Z88.1 Allergy status to other antibiotic agents; Z88.8 Allergy status to other drugs, medicaments and biological substances; Z79.891 Long term (current) use of opiate analgesic; Z68.27 Body mass index [BMI] 27.0-27.9, adult; Z85.51 Personal history of malignant neoplasm of bladder

== ENCOUNTER 2019-10-09 13:12 | Inpatient (IN) | payer MEDICARE, OTHER ==
[~2019-10-09] VITALS: Ht 167.6 cm; Wt 77.1 kg
[~2019-10-09 13:12] MED LIST changes: +AMOXICILLIN-CL1 EACH PO; +ERGOCAL2500 UNIT PO; +LEVSIN-SL0.125 MG SUBLING; +MACRODANTIN100 MG PO; +MUCINEX600 MG PO; +MYRBETRIQ50 MG PO; +UROCIT-K10 ME1 PO
[2019-10-09 13:26] VITALS: BP 104/83
[2019-10-09 14:11] LABS: URINE BLOOD 3+ (Negative); URINE CLARITY CLOUDY; URINE COLOR BROWN; URINE GLUCOSE-RANDOM NEGATIVE (Negative); URINE KETONES TRACE (Negative); URINE PROTEIN 2+ (Negative); URINE SPECIFIC GRAVITY 1.025 (1.005-1.030); URINE UROBILINOGEN 0.2 E.U./dl (0.2-1.0)
[2019-10-09 14:12] LABS: ICTOTEST (BILI CONFIRMATORY) Negative (Negative); URINE BILIRUBIN 1+ (Negative); URINE LEUKOCYTES-REFLEX 2+ (Negative); URINE NITRITE-REFLEX POSITIVE (Negative)
[2019-10-09 14:18] LABS: SQUAMOUS 4-10 Moderate /LPF (0-3); WBC CLUMPS Moderate (None Seen)
[2019-10-09 14:19] LABS: BACTERIA-REFLEX >30 Many /HPF (None Seen); MUCUS >6 Heavy strn/LPF (None Seen); URINE RBC >20 Many /HPF (0-2); URINE WBC-REFLEX >25 Many /HPF (0-5)
[2019-10-09 14:20] LABS: CASTS None Seen /LPF (None Seen); CRYSTALS None Seen /LPF (None Seen); YEAST-REFLEX Present (None Seen)
[2019-10-09 14:53] LABS: ABSOLUTE BASOPHILS 0.1 thou/uL (0.0-0.2); ABSOLUTE EOSINOPHILS 0.3 thou/uL (0.0-0.7); ABSOLUTE LYMPHOCYTES 1.6 thou/uL (0.8-5.3); ABSOLUTE MONOCYTES 0.9 thou/uL (0.0-1.2); ABSOLUTE NEUTROPHILS 3.6 thou/uL (1.6-8.1); BASOPHILS 0.8 %; EOSINOPHILS 4.6 %; HEMATOCRIT 38.9 % (37.0-47.0); HEMOGLOBIN 13.3 gm/dL (12.0-15.0); LYMPHOCYTES 25.4 %; MCH 29.7 pg (26.0-34.0); MCHC 34.2 g/dL (28.0-37.0); MCV 86.7 fL (80.0-100.0); MONOCYTES 13.6 %; MPV 7.4 fl. (7.2-11.1); NUCLEATED RBCS 0 /100WBC; PLATELET COUNT* 238 thou/uL (150-400); POLYS 55.6 %; RBC 4.49 mil/uL (4.20-5.00); RDW-CV 14.4 % (10.5-14.5); WBC 6.4 thou/uL (4.0-11.0)
[2019-10-09 15:11] LABS: CALCIUM 8.9 mg/dL (8.5-10.1); CREATININE 1.3 mg/dL (0.6-1.3); POTASSIUM 3.9 mmol/L (3.5-5.1)
[2019-10-09 15:16] LABS: ALBUMIN 3.2 g/dL (3.4-5.0); TOTAL BILIRUBIN 0.4 mg/dL (<0.1-1.0); TOTAL PROTEIN 6.4 g/dL (6.4-8.2)
--- NOTE | 2019-10-09 16:40 | NUR ---
REPORT GIVEN TO ABHISHEK LOMELI FOR ROOM ASSIGNMENT #228
[2019-10-09 17:00] VITALS: BP 95/64
[2019-10-09 17:10] VITALS: BP 111/64
[2019-10-09] MEDS ORDERED: MYRBETRIQ25 MG PO (17:57)
--- NOTE | 2019-10-09 17:58 | NUR ---
er admit to 228 telephone report given prior to arrival patient to via cart and assisted to bed oriented to and call light instructed not to get up without assist family at bedside patient with pain in abdomen area, but refuses pain medication
[2019-10-09] MEDS ORDERED: KLOR-CON 1010 MEQ PO (18:43)
[2019-10-09 20:00] VITALS: BP 106/63
[2019-10-10] VITALS: BP 120/76
[2019-10-10 04:00] VITALS: BP 133/84
[2019-10-10 04:35] LABS: ABSOLUTE EOSINOPHILS 0.3 thou/uL (0.0-0.7); ABSOLUTE LYMPHOCYTES 1.5 thou/uL (0.8-5.3); ABSOLUTE MONOCYTES 0.5 thou/uL (0.0-1.2); ABSOLUTE NEUTROPHILS 2.9 thou/uL (1.6-8.1); BASOPHILS 0.9 %; EOSINOPHILS 5.4 %; HEMATOCRIT 38.9 % (37.0-47.0); HEMOGLOBIN 13.3 gm/dL (12.0-15.0); LYMPHOCYTES 28.7 %; MCH 29.7 pg (26.0-34.0); MCHC 34.1 g/dL (28.0-37.0); MCV 87.1 fL (80.0-100.0); MONOCYTES 10.2 %; MPV 7.1 fl. (7.2-11.1); NUCLEATED RBCS 0 /100WBC; PLATELET COUNT* 237 thou/uL (150-400); POLYS 54.8 %; RBC 4.47 mil/uL (4.20-5.00); RDW-CV 14.2 % (10.5-14.5); WBC 5.3 thou/uL (4.0-11.0)
[2019-10-10 04:43] LABS: CALCIUM 8.5 mg/dL (8.5-10.1); CREATININE 1.2 mg/dL (0.6-1.3); POTASSIUM 4.1 mmol/L (3.5-5.1)
--- NOTE | 2019-10-10 04:48 | NUR ---
PT SLEPT ON AND OFF THIS SHIFT. ASSESSMENT DOCUMENTED. MEDS GIVEN PER E-MAR. PORT FLUSHES, NO BLOOD RETURN THIS AM, FLUIDS INFUSING. PT REPORTED RIGHT FLANK PAIN BUT REFUSES PAIN MEDICATIONS AT THIS TIME, PT IS TO NOTIFY NURSE IF SHE WOULD LIKE ANYTHING FOR PAIN. URINE STRAINED. WILL CONTINUE WITH PLAN OF CARE.
--- NOTE | 2019-10-10 07:25 | NUR ---
CHANGE OF SHIFT, BEDSIDE REPORT GIVEN PATIENT SEEN AT BEDSIDE, IN BED RESTING ASSUMED PATIENT CARE
[2019-10-10 08:00] VITALS: BP 131/73
[2019-10-10 11:41] VITALS: BP 118/70
[2019-10-10 16:03] VITALS: BP 116/71
[2019-10-10 19:45] VITALS: BP 108/69
[2019-10-11] VITALS (7 sets, daily range): BP systolic 133–150; BP diastolic 60–89
--- NOTE | 2019-10-11 05:29 | NUR ---
PT SLEPT MOST OF SHIFT. ASSESSMENT DOCUMENTED. MEDS GIVEN PER E-MAR. PORT PATENT, FLUIDS INFUSING. PT ANXIOUS THIS SHIFT. PT REPORTED MILD PAIN BUT DID NOT WANT PAIN MEDS THIS SHIFT. WILL CONTINUE WITH PLAN OF CARE.
--- NOTE | 2019-10-11 09:07 | EKG ---
[place] [address] ELECTROCARDIOGRAM REPORT Name: CAMPBELLUMBERTO DEONTE Room: [address] ADM IN M.R.#: [id number] Admission: 10/09/19 Attend Phys: Matthew Robles MD Discharge: Date of : 46 Report #: [id number] THIS REPORT FOR: //name// [facility] ED Test Date: 2019-10-09 Test Time: 15:46:16 Pat Name: UMBERTO HIGHOTWER Department: Room: [facility] Gender: F Emergency Planner: JEEVAN : 1950 Requested By: Missy Miranda Order Number: [id number] MD: Gavino Romero Measurements Intervals [place] Rate: 103 P: 37 VT: 167 QRS: 11 QRSD: 88 T: 54 QT: 370 QTc: 485 Interpretive Statements Sinus tachycardia artifact noted Low voltage, precordial leads Borderline prolonged QT interval Baseline wander in lead(s) III,V4,V5,V6 Compared to ECG 09/30/2019 14:38:54 No significant changes Electronically Signed On 10-11-2019 9:06:38 FORK TRUCK DRIVER by Gavino Romero [email or web address] <ELECTRONICALLY SIGNED> By: Gavino Romero MD, [facility] 10/11/19 0906 1546 1546 Gavino Romero MD, [facility] /EPI
--- NOTE | 2019-10-11 09:42 | NUR ---
ASSUMED CARE OF PT AT 0730. PT RESTING AT EDGE OF BED WAITING FOR BREAKFAST. PT A&0X4, COMPLAINS OF PAIN TO RIGHT FLANK, TREATED WITH PRN PAIN MEDICATION WITH PARTIAL RELIEF. PT COMPLAINED OF NAUSEA THIS AM, RELIEVED WITH BREAKFAST, JOLENE CRACKERS AND SPRITE. TRACING SR ON THE MANAGER RISK MANAGEMENT. ON RA SAT UPPER 90'S. DENIES ANY SHORTNESS OF BREATH. PT UP WITH SBA TO BATHROOM- STRAINING URINE. IVF. PT GOAL FOR TODAY IS PAIN MGMT, WORK WITH PHYSICAL AND OCCUPATIONAL THERAPY AND DISCHARGE PLANNING TO HOME. AM ASSESSMENT CHARTED. MEDICATIONS PER MAR. PT REPOSITIONS SELF. HOURLY ROUNDING OBSERVED. BED IN LOW POSITION. BED ALARM IN PLACE. FALL PRECAUTIONS IN PLACE. CALL LIGHT WITHIN REACH. WILL CONTINUE PLAN OF CARE.
[2019-10-11] MEDS ORDERED: CEFUROXIME500 MG PO (10:56)
[2019-10-11] MEDS ORDERED: DIFLUCAN100 MG PO (10:57)
--- NOTE | 2019-10-11 15:32 | NUR ---
cm completed initial assessment to discuss d/c planning. pt was resting. pt dtr present. family requested pt stay another night after doctor wrote d/c orders yesterday d/t increase px per pt's dtr, Hugh. per hugh pt is usually active, and drives. stated pt has "been down for about a month that is why we brought her in." pt has no hx w/HH or SNF. pt's dtr is requesting HH. has no preference. signed choice of vendor from. cm placed form in pt's chart. pt lives at home w/spouse. has 0 DME and has a good supportive network. cm to remain avial to assist as needed.
--- NOTE | 2019-10-11 16:59 | NUR ---
NO ACUTE CHANGES THROUGHOUT SHIFT. REFER TO CHARTING. PT COMPLAINED OF NAUSEA WITH VOMITING THIS AFTERNOON-TREATED WITH PRN ZOFRAN WITH PARTIAL RELIEF. PT APPETITE POOR FOR BREAKFAST AND LUNCH, EDUCATION GIVEN- PT APPETITE FAIR THIS EVENING WITH DINNER. PT COMPLAINED OF RIGHT FLANK PAIN-TREATED WITH PRN NORCO WITH PARTIAL RELIEF. PT DAUGHTER AT BEDSIDE THROUGHOUT SHIFT. PT AND PT DAUGHTER HESITANT TO DISCHARGE HOME TODAY DUE TO UNCONTROLLED NAUSEA AND PAIN AND REQUESTING SURGERY NOW. PER DR GALE- UROLOGY RE CONSULTED. NO NEW ORDERS RECEIVED AT THIS TIME. PT HAD US CAROTIDS TODAY- AWAITING RESULTS AT THIS TIME. NON PHARMACOLOGICAL PAIN AND ANXIETY TECHNIQUES TAUGHT TO PT. PT COMMUNICATES UNDERSTANDING OF EDUCATION. HEATING PAD ORDERED PRN. CONTINUES TO TRACE SR/ST ON THE MACHINIST MATE. ON RA SAT UPPER 90'S. DENIES ANY SHORTNESS OF BREATH. PT UP WITH SBA TO BATHROOM. CONTINUE TO STRAIN URINE. IVF. PT NOT PROGRESSING TOWARDS GOALS. MEDICATIONS PER MAR. PT REPOSITIONS SELF. HOURLY ROUNDING OBSERVED. BED IN LOW POSITION. CALL LIGHT WITHIN REACH. WILL CONTINUE PLAN OF CARE.
[2019-10-12] VITALS: BP 132/74
[2019-10-12 04:00] VITALS: BP 145/81
[2019-10-12 04:21] LABS: ABSOLUTE LYMPHOCYTES 0.9 thou/uL (0.8-5.3); ABSOLUTE MONOCYTES 0.5 thou/uL (0.0-1.2); ABSOLUTE NEUTROPHILS 5.4 thou/uL (1.6-8.1); BASOPHILS 0.5 %; EOSINOPHILS 0.7 %; HEMATOCRIT 40.8 % (37.0-47.0); HEMOGLOBIN 13.8 gm/dL (12.0-15.0); LYMPHOCYTES 12.5 %; MCH 29.3 pg (26.0-34.0); MCHC 33.8 g/dL (28.0-37.0); MCV 86.7 fL (80.0-100.0); MONOCYTES 7.8 %; NUCLEATED RBCS 0 /100WBC; PLATELET COUNT* 207 thou/uL (150-400); POLYS 78.5 %; RBC 4.71 mil/uL (4.20-5.00); RDW-CV 13.8 % (10.5-14.5); WBC 6.9 thou/uL (4.0-11.0)
[2019-10-12 04:32] LABS: CALCIUM 7.8 mg/dL (8.5-10.1); CREATININE 0.9 mg/dL (0.6-1.3); POTASSIUM 3.8 mmol/L (3.5-5.1)
--- NOTE | 2019-10-12 05:56 | NUR ---
PT SLEPT MOST OF SHIFT. ASSESSMENT DOCUMENTED. MEDS GIVEN PER E-MAR. IV PATENT, FLUIDS INFUSING. NO REPORTS OF PAIN. WILL CONTINUE WITH PLAN OF CARE.
[2019-10-12 07:45] VITALS: BP 143/80
[2019-10-12 12:10] VITALS: BP 135/75
--- NOTE | 2019-10-12 14:22 | NUR ---
ASSUMED CARE OF PT AT 0730. PT RESTING IN BED. PT A&0X4, DENIES ANY PAIN AT THIS TIME. PT STATES SHE WAS GIVEN ZOFRAN BY NOC SHIFT AND IT IS "HELPING SOME". PT DAUGHTER HERE LATE MORNING AND REQUESTING PHENERGAN FOR NAUSEA. DR GALE NOTIFIED. ORDERS RECEIVED FOR IV PHENERGAN, GIVEN WITH RELIEF. PT RESTING WITH EYES CLOSED AT THIS TIME. IVF DECREASED TO 50ML/HR. TRACING SR/ST ON THE DIMENSIONAL INTEGRATION ENGINEER. ON RA SAT 96%, DENIES ANY SHORTNESS OF BREATH. PT UP WITH SBA TO BATHROOM PT WORKED WITH PHYSICAL THERAPY TODAY- AMBULATED IN ROOM WITH WALKER-TOLERATED WELL. SCHEDULED LITHOTRIPSY SCHEDULED FOR 10/14. PT GOAL FOR TODAY IS INCREASE ACTIVITY AND PAIN AND NAUSEA MGMT. AM ASSESSMENT CHARTED. MEDICATIONS PER DEC. PT REPOSITIONS SELF. HOURLY ROUNDING OBSERVED. BED IN LOW POSITION. CALL LIGHT WITHIN REACH. WILL CONTINUE PLAN OF CARE.
--- NOTE | 2019-10-12 16:17 | NUR ---
REPORT GIVEN TO ABHISHEK WHITE.
[2019-10-12 16:58] VITALS: BP 133/90
[2019-10-12 20:00] VITALS: BP 122/64
[2019-10-13] VITALS: BP 139/83
[2019-10-13 04:00] VITALS: BP 143/78
--- NOTE | 2019-10-13 07:52 | NUR ---
ASSUMED PATIENT CARE AT 1900. ASSESSMENT COMPLETED CHARTED. PATIENT IS NSR ON THE MONITOR. HOURLY ROUNDING IN PLACE FOR PATIENT SAFETY. CLWR.
[2019-10-13 08:00] VITALS: BP 149/79
[2019-10-13 12:00] VITALS: BP 120/73
[2019-10-13 16:00] VITALS: BP 118/63
--- NOTE | 2019-10-13 18:46 | NUR ---
ASSUMED PT CARE AT 0700, PT A&O X4, VSS, CROCHETER HAND TRACINS SINUS RHYTHM, C/O NAUSEA IN AM, PRN IV PHENERGAN ON BOARD, TOLERATING WELL. PT EDUCATED ON NPO STATUS POST MIDNIGHT FOR PROCEDURE IN AM, FULL ASSESSMENT CHARTED, HOURLY ROUNDING COMPLETED.
[2019-10-13 20:00] VITALS: BP 104/80
[2019-10-14] VITALS: BP 140/70
[2019-10-14 04:00] VITALS: BP 144/81
[2019-10-14 05:02] LABS: ABSOLUTE BASOPHILS 0.1 thou/uL (0.0-0.2); ABSOLUTE EOSINOPHILS 0.2 thou/uL (0.0-0.7); ABSOLUTE LYMPHOCYTES 1.5 thou/uL (0.8-5.3); ABSOLUTE MONOCYTES 0.8 thou/uL (0.0-1.2); ABSOLUTE NEUTROPHILS 3.8 thou/uL (1.6-8.1); BASOPHILS 1.2 %; EOSINOPHILS 2.5 %; HEMATOCRIT 39.6 % (37.0-47.0); HEMOGLOBIN 13.4 gm/dL (12.0-15.0); LYMPHOCYTES 23.6 %; MCH 29.1 pg (26.0-34.0); MCV 85.8 fL (80.0-100.0); MONOCYTES 12.3 %; MPV 7.3 fl. (7.2-11.1); NUCLEATED RBCS 0 /100WBC; PLATELET COUNT* 218 thou/uL (150-400); POLYS 60.4 %; RBC 4.62 mil/uL (4.20-5.00); RDW-CV 14.3 % (10.5-14.5); WBC 6.4 thou/uL (4.0-11.0)
[2019-10-14 05:17] LABS: POTASSIUM 3.8 mmol/L (3.5-5.1)
--- NOTE | 2019-10-14 07:20 | NUR ---
CHANGE OF SHIFT, BEDSIDE REPORT GIVEN PATIENT SEEN AT BEDSIDE, IN BED ASLEEP ASSUMED PATIENT CARE
[2019-10-14 08:00] VITALS: BP 123/74
[2019-10-14 11:34] VITALS: BP 131/75
--- NOTE | 2019-10-14 11:47 | NUR ---
Spoke with Pt to have surgery today. Pt should be medically stable to dc to home tomorrow. Following.
[2019-10-14 20:00] VITALS: BP 112/82
[2019-10-15] VITALS: BP 110/71
[2019-10-15 04:00] VITALS: BP 147/46
--- NOTE | 2019-10-15 07:10 | NUR ---
CHANGE OF SHIFT BEDSIDE REPORT GIVEN PATIENT SEEN AT BEDSIDE, IN BED ASLEEP ASSUMED PATIENT CARE
[2019-10-15 08:00] VITALS: BP 152/77
--- NOTE | 2019-10-15 11:30 | NUR ---
ORDERS NOTED FOR DC, MET WITH PT, DISCUSSED HH AGAIN. SHE WOULD LIKE IT AND STILL HAS NO PREFERENCE. SET UP [facility], GAL TO COME VISIT WITH PT PRIOR TO DC. PT SHARED ABOUT HER SPOUSE AND POSSIBLE 'EARLY' DEMENTIA. SUGGESTED WAYS TO [place]. DTR IS SUPPORTIVE. FAXED DC ORDERS TO [facility]. NO OTHER NEEDS ID'D
[2019-10-15] MEDS ORDERED: CEFUROXIME500 MG PO (12:49)
[2019-10-15 13:06] VITALS: BP 118/66
--- NOTE | 2019-10-15 14:10 | NUR ---
patient discharged to home with h/h personal belongings returned port deaccessed and heart monitor removed discharge instructions given, acknowledged, signed orders copies given patient assisted out via wc good condition to waiting car
--- NOTE | 2019-10-21 11:49 | OP ---
[address] [address] OPERATIVE REPORT Name: UMBERTO HIGHTOWER Room: [address] IN M.R.#: [id number] Admission: 10/09/19 Attend Phys: Matthew Robles MD Discharge: 10/15/19 Date of : 46 Report #: [id number] THIS REPORT FOR: //name// CC: [facility] Matthew Ku DATE OF SERVICE: 10/14/2019 PREOPERATIVE DIAGNOSIS: Right renal pelvis stone. POSTOPERATIVE DIAGNOSIS: Right renal stone and mild right ureteropelvic junction stenosis. SURGEON: Addie Luther MD PROCEDURE: Cystourethroscopy, right ureteral stent removal, right retrograde pyelogram, right ureteroscopy, laser lithotripsy, basket extraction of stone, and right ureteral stent placement (6 x 26). A 22-modifier will be added to this procedure due to increased level of difficulty accessing the stone due to some distal ureteral stenosis as well as right UPJ stenosis, which caused the procedure to be more prolonged than usual. ANESTHESIA: General. ESTIMATED BLOOD LOSS: None. COMPLICATIONS: None. SPECIMENS: Stone. INDICATIONS FOR PROCEDURE: The patient is a 69-year-old female, who underwent right ureteral stent placement by my partner, Dr. Amberly betancourt on 09/30/2019 for a right UPJ calculus. He was unable to access the stone due to inability to pass the ureteroscope in the ureter at the UPJ because of the small opening. Therefore, she was stented and now comes back for ureteroscopy after allowing passive dilation. Risks of procedure were discussed including but not limited to infection, bleeding, injury to the urethra, bladder, ureter, need for secondary procedures, stent pain, cardiopulmonary complications. She voiced understanding and wished to proceed. DESCRIPTION OF PROCEDURE: After informed consent was obtained, the patient was taken back to the operating suite and placed supine. After induction of general anesthesia, she was placed in dorsal lithotomy position. Genitalia prepped and draped in standard fashion. Rigid cystoscopy was performed[place] [address] OPERATIVE REPORT Name: UMBERTO HIGHTOWERAshley Room: [address]#: [id number] Admission: 10/09/19 Attend Phys: Matthew Robles MD Discharge: 10/15/19 Date of : 46 Report #: [id number] normal. Urethra was normal. Her right stent curl was seen protruding from the UO and was a little long. This was externalized at the meatus and a sensor wire was threaded up into the kidney without difficulty. Using a dual-lumen catheter, a second wire was placed. I then attempted to place the 09/01 ureteral access sheath over one of the wires, but it would not pass the level of the distal ureter and there was some resistance there. I had to use the 36 length sheath as there were no 28-cm length available in the hospital. Given I could not pass the sheath, I placed the 11-Welsh portion of the sheath over one of the wires to try and dilate that distal area that was not allowing the sheath to pass and I was able to pass this up to the mid ureter without much difficulty. I attempted to place the sheath again put together, but this still would not pass the very distal ureter. I decided to inspect the area. The one of the wires was left in place and the rigid ureteroscope was advanced into the ureter. There was a little tightness in the distal ureter, but this easily accommodated the rigid scope and I was actually able to advance the rigid ureteroscope to the mid ureter and there were no stones in the ureter. Retrograde was performed and revealed some stenosis at the UPJ consistent with the prior findings at the time of her stent placement 2 weeks ago. I then attempted to place the sheath again, but met the same problem. I used again the 8-10 dual lumen catheter to perform retrograde as I could not really see what the problem would be since the rigid scope passed and the ureter appeared to be pretty much normal caliber, except at the UPJ where there was a jet of contrast somewhat consistent with the UPJ obstruction. I placed the sheath one last time and just left it in the distal ureter. The flexible scope was advanced into the ureter and I was able to pass the scope easily until I met the UPJ area. This still appeared quite narrow and it was difficult to pass the flexible scope through this. I attempted to pass the scope over a wire through the UPJ, but this still was not successful. I then removed the wire and with gentle pressure, I was able to advance the flexible scope into the kidney. I inspected the area and there was no trauma from this. Actually after I passed the scope the first time, it was much easier to pass the scope in and out of the kidney. The stone was encountered in the mid pole. Given the difficulty with passing the scope, I decided to just dust the stone as best as possible with the holmium laser and this was accomplished. I did try to capture a few tiny pieces with the 0 tip nitinol basket and did extract these for stone analysis. The rest of the kidney where it was inspected and no other stones were seen. I inspected the area where the stone had been lasered and all of this appeared to be dust-like in size and should be passable. There was no further radiopaque stone on the fluoroscopy once this was accomplished, whereas previously the stone was visible. The scope was then backed out along with the sheath, leaving the safety wire in place. There was no injury from the sheath. The retrograde was again performed with a dual lumen catheter to delineate the collecting system for stent placement. This revealed moderate hydronephrosis with a jet of contrast through the UPJ, but normal caliber ureter and there was no extravasation. The wire was backloaded through the cystoscope and a 6-Welsh x 26-cm double-J stent was threaded over the wire. [place] [address] OPERATIVE REPORT Name: UMBERTO HIGHTOWER Room: [address] IN [facility].#: [id number] Admission: 10/09/19 Attend Phys: Matthew Robles MD Discharge: 10/15/19 Date of : 46 Report #: [id number] mid pole and good curl was seen within the bladder. The bladder was then drained and the scope was removed, 5 mL lidocaine jelly were used per urethra for local anesthesia. She was awoken, extubated, and taken to recovery in satisfactory condition. She will be admitted back to the floor for pain control and hopefully discharge tomorrow. She can follow up with me in 1-2 weeks for stent removal. <ELECTRONICALLY SIGNED> By: Courtney Luther MD 10/21/19 1149 1642 [id number] Luther MD /nt
[2019-11-09 08:09] LABS: STONE CA OXALATE DIHYDRATE 90 % (()); STONE CALCIUM PHOSPHATE 10 % (()); STONE COLOR Brown (()); STONE COMMENT Note: (()); STONE WEIGHT 3.8 mg (())
== END 2019-10-15 14:10 | disposition home health service (06) | DRG 660 ==
LOC: M.ERS 13:12 → M.2W 15:52 → M.TBA-ER 15:52 → M.2W 17:05
PROVIDERS: Personal Emergency Response Attendant; ADMIT Internal Medicine
PROC: 0TP98DZ Removal of Intraluminal Device from Ureter, Via Natural or Artificial Opening Endoscopic (ICD-10-PCS; principal; 2019-10-14)
PROC: BT1D1ZZ Fluoroscopy of Right Kidney, Ureter and Bladder using Low Osmolar Contrast (ICD-10-PCS; principal; 2019-10-14)
PROC: 0TC68ZZ Extirpation of Matter from Right Ureter, Via Natural or Artificial Opening Endoscopic (ICD-10-PCS; principal; 2019-10-14)
PROC: 0T768DZ Dilation of Right Ureter with Intraluminal Device, Via Natural or Artificial Opening Endoscopic (ICD-10-PCS; principal; 2019-10-14)
DX: N13.6 Pyonephrosis (principal); E44.1 Mild protein-calorie malnutrition; E11.9 Type 2 diabetes mellitus without complications; E78.00 Pure hypercholesterolemia, unspecified; E03.9 Hypothyroidism, unspecified; K57.90 Diverticulosis of intestine, part unspecified, without perforation or abscess without bleeding; N39.0 Urinary tract infection, site not specified; N23 Unspecified renal colic; M19.90 Unspecified osteoarthritis, unspecified site; E86.0 Dehydration; Z90.710 Acquired absence of both cervix and uterus; Z90.49 Acquired absence of other specified parts of digestive tract; Z88.6 Allergy status to analgesic agent; Z88.1 Allergy status to other antibiotic agents; Z88.8 Allergy status to other drugs, medicaments and biological substances; Z68.27 Body mass index [BMI] 27.0-27.9, adult; Z79.899 Other long term (current) drug therapy

== ENCOUNTER 2019-10-28 11:26 | Inpatient (IN) | payer MEDICARE, OTHER ==
[~2019-10-28] VITALS: Ht 167.6 cm; Wt 74.7 kg
--- NOTE | ~2019-10-28 | CON ---
[address] [address] CONSULTATION Name: UMBERTO HIGHTOWER Room: [address] IN M.R.#: [id number] Admission: 10/28/19 Attend Phys: Oswaldo Long Discharge: Date of : 46 Report #: [id number] THIS REPORT FOR: //name// CC: Glenn Delgadillo DICTATED BY: Sridevi Blank [facility] DATE OF SERVICE: 10/29/2019 Please note at the time of this dictation, the patient was seen and physically examined by myself. REASON FOR CONSULTATION: Recurrent nausea and vomiting and decreased appetite over the last 2 months. HISTORY OF PRESENT ILLNESS: This is a 69-year-old female who is well known to our practice who was scheduled for an EGD and colonoscopy in the first of this year, but had to cancel because she had issues with kidney stone and a stent placement and has not had ability to reschedule because of this, which she just had the stent removed yesterday. During this period of time, she has had a decreased appetite over the last couple of months and weight loss of about 20 pounds. She states most of the time if she does vomit, it has been with no bright red blood or coffee ground emesis. She states most of time is more dry heaving than anything else. She denies any worsening of her acid reflux and she does take medicine on a regular basis for that when she is at home. However, when looking on her medication sheet, there is nothing listed here, she could not tell me the name at the time when I saw her. She denies any abdominal pain. She denies any issues with her bowels. She states she continues to go daily, soft and formed without any issues. Last EGD was in 01/2014. She had a normal upper and was dilated because of symptoms of dysphagia with the 56-Nigerian with tearing noted. She also underwent a colonoscopy at that time, she had external hemorrhoids, diverticulosis. She had a tubular adenoma polyp and she had dilatation performed at 20 mm for a stenotic anastomotic stricture, which was successful. ALLERGIES: MORPHINE, CIPRO, FLAGYL. MEDICATIONS FROM HOME: Crestor, Humalog, multivitamin, Cymbalta, Bentyl, melatonin, Synthroid, Avalide, insulin, ____, potassium chloride, Diflucan. PAST MEDICAL HISTORY: Diabetes, implanted nerve stimulator in her back, high cholesterol, hypothyroidism, history of Lyme's disease, diverticulosis, fibromyalgia. PAST SURGICAL HISTORY: D and C, hysterectomy, bone grafts in both feet, [place] [address] CONSULTATION Name: UMBERTO HIGHTOWER Room: [address] IN M.R.#: [id number] Admission: 10/28/19 Attend Phys: Oswaldo Long Discharge: Date of : 46 Report #: [id number] colectomy in 2013, breast reduction, cervical diskectomy in 12/2015 and a bladder tumor removal. FAMILY HISTORY: Noncontributory. SOCIAL HISTORY: Denies any alcohol, tobacco or illegal drug use. REVIEW OF SYSTEMS: Twelve-point review of systems is essentially negative except what is mentioned in the HPI. PHYSICAL EXAMINATION: VITAL SIGNS: Temperature 36.7, pulse 83, respirations 17, blood pressure 106/59. HEART: Regular rate and rhythm. LUNGS: Clear. ABDOMEN: Soft, positive bowel sounds in all 4 quadrants with no masses or tenderness noted. LABORATORY DATA: Hemoglobin is 13.8, white count is 7.3, platelets 395. However, sodium and potassium were abnormal on admission and have now normalized. GFR is 40. LFTs were completely normal. She did have a CT that showed fatty liver and a right renal calculi. IMPRESSION: 1. Nausea and vomiting, improving. 2. Decreased appetite. 3. Weight loss. 4. Recent ureter stent removal. 5. Diabetes. PLAN: 1. Determination of when EGD to be performed will depend on how the patient does today and that will be determined by Dr. Merida when she sees the patient later today. We will restart the patient on reflux medication. 2. Further recommendations to be made once Dr. Merida sees the patient later today. Thank you for allowing us to participate in this patient's care. Please do not hesitate to call with any questions in regard to this consult. By: [id number] Merida MD /nt
[~2019-10-28 11:26] MED LIST changes: +CEFUROXIME500 MG PO; +DIFLUCAN100 MG PO; +KLOR-CON 1010 MEQ PO
[2019-10-28 11:33] VITALS: BP 141/84
[2019-10-28 12:55] LABS: ABSOLUTE BASOPHILS 0.1 thou/uL (0.0-0.2); ABSOLUTE EOSINOPHILS 0.1 thou/uL (0.0-0.7); ABSOLUTE LYMPHOCYTES 1.5 thou/uL (0.8-5.3); ABSOLUTE MONOCYTES 0.6 thou/uL (0.0-1.2); ABSOLUTE NEUTROPHILS 6.8 thou/uL (1.6-8.1); BASOPHILS 1.3 %; EOSINOPHILS 1.5 %; HEMATOCRIT 45.3 % (37.0-47.0); HEMOGLOBIN 15.5 gm/dL (12.0-15.0); LYMPHOCYTES 16.9 %; MCH 29.3 pg (26.0-34.0); MCHC 34.3 g/dL (28.0-37.0); MCV 85.6 fL (80.0-100.0); MONOCYTES 6.3 %; MPV 7.9 fl. (7.2-11.1); NUCLEATED RBCS 0 /100WBC; PLATELET COUNT* 479 thou/uL (150-400); RBC 5.29 mil/uL (4.20-5.00); WBC 9.1 thou/uL (4.0-11.0)
[2019-10-28 13:06] LABS: APTT 26.5 Seconds (25.0-31.3)
[2019-10-28 13:27] LABS: CALCIUM 9.1 mg/dL (8.5-10.1); CREATININE 1.7 mg/dL (0.6-1.3)
[2019-10-28 13:29] LABS: POTASSIUM 6.4 mmol/L (3.5-5.1)
[2019-10-28 13:38] LABS: ALBUMIN 3.8 g/dL (3.4-5.0); MAGNESIUM 1.9 mg/dL (1.8-2.4); TOTAL BILIRUBIN 0.6 mg/dL (<0.1-1.0); TOTAL PROTEIN 8.4 g/dL (6.4-8.2)
--- NOTE | 2019-10-28 13:56 | EKG ---
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1950 Requested By: Norbert Lopez Order Number: [id number] MD: Kevin Ochoa Measurements Intervals [place] Rate: 90 P: 49 VA: 150 QRS: 13 QRSD: 88 T: 55 QT: 359 QTc: 440 Interpretive Statements Sinus rhythm Incomplete right bundle-branch block Compared to ECG 10/09/2019 15:46:16 RSR' in V1 or V2 now present Sinus tachycardia no longer present Electronically Signed On 10-28-2019 13:55:25 COMPOSITION FLOOR LAYER by Kevin Ochoa [email or web address] <ELECTRONICALLY SIGNED> By: Kevin Ochoa MD, [facility] 10/28/19 1355 31 31 Kevin Ochoa MD, FACC /EPI
[2019-10-28 16:57] VITALS: BP 99/46
[2019-10-28 17:15] VITALS: BP 128/57
[2019-10-28 20:30] VITALS: BP 123/75
[2019-10-29] VITALS: BP 112/61
[2019-10-29 04:00] VITALS: BP 106/59
[2019-10-29 05:20] LABS: ABSOLUTE BASOPHILS 0.1 thou/uL (0.0-0.2); ABSOLUTE EOSINOPHILS 0.2 thou/uL (0.0-0.7); ABSOLUTE LYMPHOCYTES 2.1 thou/uL (0.8-5.3); ABSOLUTE MONOCYTES 0.8 thou/uL (0.0-1.2); ABSOLUTE NEUTROPHILS 4.2 thou/uL (1.6-8.1); BASOPHILS 0.8 %; HEMATOCRIT 40.7 % (37.0-47.0); HEMOGLOBIN 13.8 gm/dL (12.0-15.0); LYMPHOCYTES 28.5 %; MCH 28.8 pg (26.0-34.0); MCV 84.7 fL (80.0-100.0); MONOCYTES 10.6 %; MPV 7.8 fl. (7.2-11.1); NUCLEATED RBCS 0 /100WBC; POLYS 57.1 %; RDW-CV 13.9 % (10.5-14.5); WBC 7.3 thou/uL (4.0-11.0)
[2019-10-29 05:49] LABS: PLATELET COUNT* 395 thou/uL (150-400)
[2019-10-29 06:07] LABS: ALBUMIN 3.2 g/dL (3.4-5.0); CALCIUM 8.3 mg/dL (8.5-10.1); CREATININE 1.3 mg/dL (0.6-1.3); TOTAL BILIRUBIN 0.5 mg/dL (<0.1-1.0); TOTAL PROTEIN 7.1 g/dL (6.4-8.2)
[2019-10-29 06:10] LABS: POTASSIUM 4.3 mmol/L (3.5-5.1)
[2019-10-29 08:00] VITALS: BP 119/62
[2019-10-29 12:33] VITALS: BP 108/67
[2019-10-29 15:43] VITALS: BP 101/60
[2019-10-29 16:10] LABS: URINE BILIRUBIN NEGATIVE (Negative); URINE BLOOD NEGATIVE (Negative); URINE CLARITY CLEAR; URINE COLOR YELLOW; URINE GLUCOSE-RANDOM 3+ (Negative); URINE KETONES NEGATIVE (Negative); URINE LEUKOCYTES-REFLEX NEGATIVE (Negative); URINE NITRITE-REFLEX NEGATIVE (Negative); URINE PROTEIN NEGATIVE (Negative); URINE UROBILINOGEN 0.2 E.U./dl (0.2-1.0)
--- NOTE | 2019-10-29 18:14 | CON ---
[address] [address] CONSULTATION Name: UMBERTO HIGHTOWER Room: [address] IN M.R.#: [id number] Admission: 10/28/19 Attend Phys: Oswaldo Long Discharge: Date of : 46 Report #: [id number] THIS REPORT FOR: //name// CC: Dr. Ku . Glenn Delgadillo HISTORY OF PRESENT ILLNESS: The patient is a 69-year-old white female, who I was asked to see in the hospital today after she complained of chest pain. The patient has no previous history of heart disease. She actually had a stress echocardiogram done here at [facility] in 2015. There was normal left ventricular function. During stress, there are no significant ST-segment changes. There is no wall motion abnormalities noted. She had a repeat echocardiogram just done in September here at [facility] that showed ejection fraction of 60%. The patient is not very active at this time. Recently, she developed a kidney stone. She had a stent placed earlier last month. The stent was then removed after a couple of weeks. Recently, she has had no appetite. She has been nauseated, had some vomiting. Her daughter brought her to [place] yesterday by car, she felt some heaviness in her chest, became diaphoretic and short of breath. Cardiology consultation requested. She denied the pain being related to activity or meals. There is no blood in her vomit. She denies palpitations or syncope. PAST MEDICAL HISTORY: She has had previous partial colon resection, hysterectomy, hypertension and diabetes. MEDICATIONS: Cymbalta, insulin, Avalide, oxybutynin, Protonix, Crestor. ALLERGIES: SHE HAS PREVIOUS INTOLERANCE TO CIPRO AND MORPHINE. FAMILY HISTORY: Her mother had a TIA. SOCIAL HISTORY: She is . She and her live in [place], her daughter, Eloise is a nurse here at [facility]. No smoking or alcohol abuse. REVIEW OF SYSTEMS: She has had no history of stroke, asthma, peptic ulcer disease, liver disease, kidney disease, cancer, psychiatric illness, chronic skin condition. PHYSICAL EXAMINATION: GENERAL: Revealed an elderly female lying in bed. She appeared in no distress. VITAL SIGNS: Her blood pressure is 130/60, pulse is 90. She is afebrile. HEENT: She was anicteric. Conjunctivae pink. Mucous membranes moist. NECK: Veins were nondistended. No carotid bruits. CHEST: Clear to auscultation. CARDIOVASCULAR: Regular rate and rhythm. ABDOMEN: [place] [address] CONSULTATION Name: UMBERTO HIGHTOWER Room: [address] IN M.R.#: [id number] Admission: 10/28/19 Attend Phys: Oswaldo Long Discharge: Date of : 46 Report #: [id number] EXTREMITIES: Had no edema. Dorsalis pedis pulse 1+ bilaterally. SKIN: Cool and dry. NEUROLOGIC: Nonfocal. RADIOLOGICAL DATA: Her ECG showed a sinus rhythm. There was no significant ST or T-wave change noted. Her workup in the Emergency Room yesterday, she had a portable chest x-ray that showed no acute abnormality. She had a CT scan of the abdomen and pelvis because of her abdominal discomfort, nausea that showed right renal calculus, fatty liver. Carotid Doppler study in September here at [facility] that showed no significant stenosis, less than 50%. LABORATORY DATA: Her lab work yesterday revealed sodium 133, BUN 20, creatinine 1.3. Liver function studies were normal. Troponins 0.06. Her white blood cell count was 7.3, hemoglobin 13.8. Her lipase is 191. IMPRESSION AND RECOMMENDATIONS: 1. Anorexia and nausea. Reason unclear. 2. Hyperkalemia. Reason unclear. I would stop her ARB. 3. Hypertension. The patient is on an ARB. 4. Diabetes. 5. Hyperlipidemia. The patient is on a statin drug. 6. Chest discomfort. Atypical for angina. No evidence of acute coronary syndrome. I would not recommend additional cardiac evaluation at this time. 7. Recent episode of a kidney stone. <ELECTRONICALLY SIGNED> By: Gavino Romero MD, FACC 10/29/19 1814 0904 [id number] Romero MD, FACC /nt
[2019-10-29 20:00] VITALS: BP 119/66
[2019-10-30 00:04] VITALS: BP 127/70
[2019-10-30 05:16] VITALS: BP 123/70
[2019-10-30 08:00] VITALS: BP 99/50
[2019-10-30 12:15] VITALS: BP 143/70
[2019-10-30 15:51] LABS: ABSOLUTE BASOPHILS 0.1 thou/uL (0.0-0.2); ABSOLUTE EOSINOPHILS 0.1 thou/uL (0.0-0.7); ABSOLUTE MONOCYTES 0.5 thou/uL (0.0-1.2); ABSOLUTE NEUTROPHILS 3.5 thou/uL (1.6-8.1); BASOPHILS 1.4 %; EOSINOPHILS 2.4 %; HEMATOCRIT 38.8 % (37.0-47.0); HEMOGLOBIN 13.1 gm/dL (12.0-15.0); LYMPHOCYTES 31.5 %; MCH 28.7 pg (26.0-34.0); MCHC 33.7 g/dL (28.0-37.0); MCV 85.3 fL (80.0-100.0); MONOCYTES 8.6 %; NUCLEATED RBCS 0 /100WBC; PLATELET COUNT* 343 thou/uL (150-400); POLYS 56.1 %; RBC 4.55 mil/uL (4.20-5.00); WBC 6.2 thou/uL (4.0-11.0)
[2019-10-30 16:08] LABS: CALCIUM 7.8 mg/dL (8.5-10.1); POTASSIUM 3.9 mmol/L (3.5-5.1); TOTAL BILIRUBIN 0.2 mg/dL (<0.1-1.0); TOTAL PROTEIN 6.5 g/dL (6.4-8.2)
[2019-10-30 17:02] VITALS: BP 123/69
[2019-10-30 20:00] VITALS: BP 107/81
[2019-10-31 00:04] VITALS: BP 120/67
[2019-10-31 08:00] VITALS: BP 116/71
[2019-10-31] MEDS ORDERED: PHENERGAN 25 MG25 M1 PO (12:33)
[2019-10-31] MEDS ORDERED: ZOFRAN4 MG PO (12:33)
[2019-10-31 12:51] VITALS: BP 123/66
[2019-10-31 13:06] VITALS: BP 123/66
[2019-10-31 13:12] VITALS: BP 123/66
== END 2019-10-31 14:15 | disposition home or self-care (01) | DRG 302 ==
LOC: M.ERS 11:26 → M.TBA-ER 14:47 → M.2W 14:47
PROVIDERS: Emergency Medicine Emergency Medical Services; Nurse Practitioner Adult Health; ADMIT Internal Medicine
DX: I25.110 Atherosclerotic heart disease of native coronary artery with unstable angina pectoris (principal); N17.0 Acute kidney failure with tubular necrosis; E87.1 Hypo-osmolality and hyponatremia; E11.9 Type 2 diabetes mellitus without complications; E78.00 Pure hypercholesterolemia, unspecified; E03.9 Hypothyroidism, unspecified; K57.90 Diverticulosis of intestine, part unspecified, without perforation or abscess without bleeding; M79.7 Fibromyalgia; E87.5 Hyperkalemia; I10 Essential (primary) hypertension; E78.5 Hyperlipidemia, unspecified; R11.2 Nausea with vomiting, unspecified; R63.0 Anorexia; F32.9 Major depressive disorder, single episode, unspecified; K58.9 Irritable bowel syndrome, unspecified; R63.4 Abnormal weight loss; J02.9 Acute pharyngitis, unspecified; I45.10 Unspecified right bundle-branch block; R10.9 Unspecified abdominal pain; Z87.442 Personal history of urinary calculi; Z90.49 Acquired absence of other specified parts of digestive tract; Z79.4 Long term (current) use of insulin; Z90.710 Acquired absence of both cervix and uterus; Z79.899 Other long term (current) drug therapy; Z88.1 Allergy status to other antibiotic agents; Z88.5 Allergy status to narcotic agent; Z88.8 Allergy status to other drugs, medicaments and biological substances; Z68.26 Body mass index [BMI] 26.0-26.9, adult

== ENCOUNTER → 2019-12-03 | Outpatient (CLI) | payer MEDICARE, OTHER ==
[~2019-12-03] MED LIST changes: +PEPCID20 MG PO; +PHENERGAN 25 MG25 M1 PO; +REGLAN 5 MG TAB5 MG PO; +ZOFRAN4 MG PO
== END ==
LOC: M.ULTRA 11-25 10:30
DX: N20.0 Calculus of kidney (principal); N28.89 Other specified disorders of kidney and ureter

== ENCOUNTER → 2019-12-04 | Outpatient (CLI) | payer MEDICARE, OTHER ==
[2019-12-05 02:07] LABS: URINE CALCIUM 190 mg/24 hr (26-354); URINE CALCIUM-mg/dl 27.1 mg/dL (Not Estab.); URINE CREATININE 131.9 mg/dL (Not Estab.); URINE CREATININE (GM/24H) 923 mg/24 hr (800-1800); URINE SODIUM 83 (39-258); URINE SODIUM-mEq/L 119 mmol/L (Not Estab.)
== END ==
LOC: M.LAB 11:01
PROVIDERS: Urology
DX: N20.0 Calculus of kidney (principal)

== ENCOUNTER → 2019-12-23 | Outpatient (CLI) | payer MEDICARE, OTHER | LOC: M.INFUS 09:30 | DX: Z45.2 Encounter for adjustment and management of vascular access device (principal); N20.0 Calculus of kidney ==

== ENCOUNTER → 2019-12-31 | Day surgery (SDC) | payer MEDICARE, OTHER ==
[~2019-12-31] MED LIST changes: +PROTONIX40 M1 PO
--- NOTE | ~2019-12-31 | PROC ---
[facility] [address] [place] [address] PROCEDURE REPORT Name: CAMPBELLUMBERTO GARCIAAshley Room: [facility] M.R.#: [id number] Admission: 12/31/19 Attend Phys: Justo Eng DO Discharge: Date of : 46 Report #: [id number] THIS REPORT FOR: //name// cc: Glenn Ku Vincent R. DO ~ THIS REPORT FOR: //name// For GI report, please see the Provation report in Perceptive 7 content. By: [id number] Records Staff ADARSH /VIJAY
[2019-12-31 09:34] LABS: HEMOGLOBIN 14.1 gm/dL (12.0-15.0); MCH 28.6 pg (26.0-34.0); MCHC 33.5 g/dL (28.0-37.0); MCV 85.3 fL (80.0-100.0); RBC 4.92 mil/uL (4.20-5.00); RDW-CV 15.2 % (10.5-14.5)
[2019-12-31 09:42] LABS: CALCIUM 9.1 mg/dL (8.5-10.1)
[2019-12-31 09:47] LABS: ALBUMIN 3.9 g/dL (3.4-5.0); TOTAL BILIRUBIN 0.6 mg/dL (<0.1-1.0); TOTAL PROTEIN 7.5 g/dL (6.4-8.2)
== END | disposition home or self-care (01) ==
LOC: M.SUR 08:45
PROVIDERS: Internal Medicine Gastroenterology
DX: Z12.11 Encounter for screening for malignant neoplasm of colon (principal); Z86.010 Personal history of colon polyps; K63.5 Polyp of colon; K22.2 Esophageal obstruction; I10 Essential (primary) hypertension; E11.9 Type 2 diabetes mellitus without complications; K57.30 Diverticulosis of large intestine without perforation or abscess without bleeding; E03.9 Hypothyroidism, unspecified; F32.9 Major depressive disorder, single episode, unspecified; Z98.890 Other specified postprocedural states; Z79.899 Other long term (current) drug therapy; Z90.710 Acquired absence of both cervix and uterus; Z87.442 Personal history of urinary calculi; Z98.0 Intestinal bypass and anastomosis status; Z88.8 Allergy status to other drugs, medicaments and biological substances

== ENCOUNTER → 2020-02-23 | Day surgery (SDC) | payer MEDICARE, OTHER ==
[~2020-02-23] MED LIST changes: +ALEVE PM CAPLE1 EACH PO; +CRESTOR10 MG PO; +MIRALAX17 G1 PO; +NORCO 5-325 TA1 EAC1 PO; +PROBIOTIC1 EAC7 PO; +ZYRTEC10 M2 PO
--- NOTE | ~2020-02-23 | OP ---
[address] [address] OPERATIVE REPORT Name: UMBERTO HIGHTOWER Room: [facility]#: [id number] Admission: 02/23/20 Attend Phys: Steve Martinez II Discharge: Date of : 46 Report #: [id number] THIS REPORT FOR: //name// cc: Glenn Ku Vincent R. DO ~ THIS REPORT FOR: //name// CC: Steve Ku DATE OF SERVICE: 02/23/2020 PREOPERATIVE DIAGNOSIS: Right de Quervain's tenosynovitis. POSTOPERATIVE DIAGNOSIS: Right de Quervain's tenosynovitis . PROCEDURE: Right de Quervain's release. SURGEON: Steve Martinez II, DO. MARINE EQUIPMENT PRESERVATION INSPECTOR: AMANDA Spears. ANESTHESIA: LMA. ESTIMATED BLOOD LOSS: Minimal. ANTIBIOTICS: Per operative record. DRAINS: None. COMPLICATIONS: None. CONDITION OF THE PATIENT: Stable to recovery room. DESCRIPTION OF PROCEDURE: The patient was taken to the operative suite and placed supine on the operative table, given appropriate anesthesia. The patient had a well-padded tourniquet applied to the upper extremity, which was inflated to 250 mmHg after Esmarch exsanguination for duration of procedure. The arm was sterilely prepped and draped. Surgery began by an incision in a longitudinal fashion over the radial aspect of the right wrist over the first dorsal compartment. This was carried down to the subcutaneous tissues. The first dorsal compartment tendon sheath was then released in the proximal and distal directions. The tendons were intact with synovitis around them. This synovitis was removed utilizing forceps and this was irrigated. After the tendons were confirmed to be intact with free movement. This was then closed utilizing a 2-0 Vicryl and a running Monocryl stitch. Dermabond [place] [address] OPERATIVE REPORT Name: UMBERTO HIGHTOWER Room: [facility]#: [id number] Admission: 02/23/20 Attend Phys: Steve Martinez II Discharge: Date of : 46 Report #: [id number] The patient transported to recovery room in stable condition. Counts were correct throughout the procedure. By: [id number] Martinez II, DO /nt
[2020-02-23 10:10] LABS: HEMATOCRIT 38.8 % (37.0-47.0); MCH 28.8 pg (26.0-34.0); MCHC 33.7 g/dL (28.0-37.0); MCV 85.5 fL (80.0-100.0); MPV 7.7 fl. (7.2-11.1); RBC 4.53 mil/uL (4.20-5.00); RDW-CV 14.6 % (10.5-14.5); WBC 7.6 thou/uL (4.0-11.0)
[2020-02-23 10:17] LABS: CREATININE 1.1 mg/dL (0.6-1.3); POTASSIUM 3.5 mmol/L (3.5-5.1)
== END | disposition home or self-care (01) ==
LOC: M.SUR 07:26
PROVIDERS: Orthopaedic Surgery
DX: M65.4 Radial styloid tenosynovitis [de Quervain] (principal); I10 Essential (primary) hypertension; E11.9 Type 2 diabetes mellitus without complications; E78.00 Pure hypercholesterolemia, unspecified; E03.9 Hypothyroidism, unspecified; M79.7 Fibromyalgia; Z98.890 Other specified postprocedural states; Z79.899 Other long term (current) drug therapy; Z90.710 Acquired absence of both cervix and uterus; Z87.442 Personal history of urinary calculi; Z88.8 Allergy status to other drugs, medicaments and biological substances

== ENCOUNTER → 2020-03-27 | Outpatient (CLI) | payer MEDICARE, OTHER ==
[~2020-03-27] MED LIST changes: +LOMOTIL TABLET1 EACH PO; +STOOL SOFTENER100 MG PO
--- NOTE | 2020-03-27 10:03 | NUR ---
ARRIVED AMBULATORY. MADE SELF COMFORTABLE IN RECLINER. PORT ACCESSED WITH OUT DIFFICULTY. GOOD BRISK BLOOD RETURN NOTED AND FLUSHED WITH EASE. PORT NOTED TO BE TILTED DOWN ABOUT 1CM. PORT FLUSHED AND DEACCESSED. TOLERATED WELL. DENIES QUESTIONS OR NEEDS AT DISCHARGE.
== END ==
LOC: M.INFUS 03:41
PROVIDERS: ATTEND Family Medicine
DX: Z45.2 Encounter for adjustment and management of vascular access device (principal); R10.12 Left upper quadrant pain

== ENCOUNTER 2020-03-29 13:40 | Emergency (ER) | payer MEDICARE, OTHER ==
[~2020-03-29] VITALS: Ht 167.6 cm; Wt 73.5 kg
[~2020-03-29 13:40] MED LIST changes: -LOMOTIL TABLET1 EACH PO; -STOOL SOFTENER100 MG PO
[2020-03-29] MEDS ORDERED: ZOFRAN4 MG PO (14:00)
[2020-03-29] MEDS ORDERED: STOOL SOFTENER100 MG PO (14:00)
[2020-03-29] MEDS ORDERED: REGLAN 5 MG TAB5 MG PO (14:00)
[2020-03-29 14:25] LABS: ABSOLUTE EOSINOPHILS 0.2 thou/uL (0.0-0.7); ABSOLUTE LYMPHOCYTES 1.4 thou/uL (0.8-5.3); ABSOLUTE MONOCYTES 0.6 thou/uL (0.0-1.2); ABSOLUTE NEUTROPHILS 4.5 thou/uL (1.6-8.1); BASOPHILS 0.5 %; EOSINOPHILS 2.7 %; HEMATOCRIT 42.1 % (37.0-47.0); HEMOGLOBIN 14.6 gm/dL (12.0-15.0); MCH 30.4 pg (26.0-34.0); MCHC 34.7 g/dL (28.0-37.0); MCV 87.7 fL (80.0-100.0); MONOCYTES 9.4 %; MPV 7.5 fl. (7.2-11.1); NUCLEATED RBCS 0 /100WBC; PLATELET COUNT* 232 thou/uL (150-400); POLYS 66.4 %; RDW-CV 15.1 % (10.5-14.5); WBC 6.8 thou/uL (4.0-11.0)
[2020-03-29 14:44] LABS: CALCIUM 8.8 mg/dL (8.5-10.1); CREATININE 1.2 mg/dL (0.6-1.3); POTASSIUM 3.6 mmol/L (3.5-5.1)
[2020-03-29 14:48] LABS: ALBUMIN 3.4 g/dL (3.4-5.0); TOTAL BILIRUBIN 0.4 mg/dL (<0.1-1.0); TOTAL PROTEIN 7.1 g/dL (6.4-8.2)
[2020-03-29] MEDS ORDERED: LOMOTIL TABLET1 EACH PO (17:03)
[2020-03-29] MEDS ORDERED: PHENERGAN 25 MG25 M1 PO (17:03)
--- NOTE | 2020-03-29 17:11 | EKG ---
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 03/29/20 1710 144 144 Antelmo Diallo MD, FACC /EPI
[2020-03-29 19:00] VITALS: BP 137/85
== END 2020-03-29 19:00 | disposition home or self-care (01) ==
LOC: M.ERS 13:40
PROVIDERS: Nurse Practitioner Family
DX: K52.9 Noninfective gastroenteritis and colitis, unspecified (principal); R42 Dizziness and giddiness; M79.7 Fibromyalgia; E11.9 Type 2 diabetes mellitus without complications; E78.00 Pure hypercholesterolemia, unspecified; E03.9 Hypothyroidism, unspecified; Z90.710 Acquired absence of both cervix and uterus; Z88.5 Allergy status to narcotic agent; Z88.1 Allergy status to other antibiotic agents; Z88.8 Allergy status to other drugs, medicaments and biological substances; Z79.4 Long term (current) use of insulin; Z79.899 Other long term (current) drug therapy

== ENCOUNTER → 2020-05-25 | Outpatient (CLI) | payer MEDICARE, OTHER ==
[~2020-05-25] MED LIST changes: +LOMOTIL TABLET1 EACH PO; +STOOL SOFTENER100 MG PO
--- NOTE | 2020-05-25 10:36 | NUR ---
PORT A CATH ACCESSED WITH OUT DIFFICULTY. GOOD BRISK BLOOD RETURN NOTED AND FLUSHED WITH EASE. PORT FLUSHED AND DEACCESSED. TOLERATED WELL. DENIES QUESTIONS OR NEEDS AT DISCHARGE.
== END ==
LOC: M.INFUS 03:52
PROVIDERS: ATTEND Family Medicine
DX: Z45.2 Encounter for adjustment and management of vascular access device (principal)

== ENCOUNTER → 2020-12-15 | Outpatient (CLI) | payer MEDICARE, OTHER | LOC: M.RAD 12-13 10:00 | PROVIDERS: ATTEND Family Medicine | DX: Z12.31 Encounter for screening mammogram for malignant neoplasm of breast (principal) ==

== ENCOUNTER → 2021-01-08 | Outpatient (CLI) | payer MEDICARE, OTHER | LOC: M.RAD 13:56 | PROVIDERS: ATTEND Family Medicine | DX: M81.0 Age-related osteoporosis without current pathological fracture (principal); Z78.0 Asymptomatic menopausal state ==

== ENCOUNTER → 2021-01-26 | Outpatient (CLI) | payer MEDICARE, OTHER | LOC: M.INT 13:53 | PROVIDERS: ATTEND Family Medicine | DX: Z45.2 Encounter for adjustment and management of vascular access device (principal); Z87.440 Personal history of urinary (tract) infections; Z79.899 Other long term (current) drug therapy; Z98.890 Other specified postprocedural states ==

== ENCOUNTER → 2021-10-08 | Outpatient (CLI) | payer MEDICARE, OTHER | LOC: M.ULTRA 14:00 | PROVIDERS: ATTEND Family Medicine | DX: M79.605 Pain in left leg (principal) ==